=== PATIENT | female | born 1945 | race Caucasian/White ===

== ENCOUNTER → 2017-02-11 | Outpatient (CLI) | payer MEDICARE, MEDICAID ==
[2016-05-23 10:45] VITALS: BP 106/61
[~2017-02-11] MED LIST: ALBU8.5H3 INH; AMLO10TA2 PO; BACL10TA PO; BUDE10.2 IH; CALC1TAB75 PO; CYAN10005 PO; CYCL10TA2 PO; DEXT20CA7 PO; DEXT20TA2 PO; DEXT20TA24 PO; DIPH25CA58 PO; DULO60CA6 PO; ESTR1TAB5 PO; HYDR-2666 PO; HYDR-2672 PO; HYDR40TA PO; LEVO100T5 PO; LURA40TA PO; MIRA50TA PO; MONT10TA9 PO; ONDA4TAB10 PO; ROPI0.5T PO; SUMA100T3 PO; SUMA100T4 PO; TRAM50TA PO; VALS320T2 PO
--- NOTE | 2017-02-11 15:02 | RAD ---
APPROVED REPORT Patient Location : OUT-PATIENT Indications Skin Changes Bilateral saphenofemoral junctions and greater and lesser saphenous veins were imaged. No significant thrombus is evident on limited grayscale images. Although there is reflux noted in the common femora l vein of approximately 4 seconds there is no evidence of reflux in the greater saphenous vein on the right side. No evidence of reflux on the lesser saphenous vein on the right side. The left greater and lesser saphenous veins do not demonstrate any evidence of reflux. The right great saphenous vein measures approximately 5 mm in greatest diameter. The left greater sap henous vein measures approximately 5 mm in diameter. Critical Notification Critical Value: No <Conclusion> No evidence of reflux in the bilateral greater and lesser saphenous veins.
== END | disposition home or self-care (01) ==
LOC: US 12:50
PROVIDERS: ATTEND Internal Medicine Cardiovascular Disease
DX: R60.0 Localized edema (principal)
CPT/HCPCS: 93970

== ENCOUNTER 2017-06-10 09:54 | Emergency (ER) | payer MEDICARE, MEDICAID ==
[~2017-06-10] VITALS: Ht 167.6 cm; Wt 72.6 kg
[~2017-06-10 09:54] MED LIST changes: -ALBU8.5H3 INH; +ALBU8.5H8 INH; +CYCL-331 PO; -CYCL10TA2 PO; -HYDR-2666 PO; -HYDR-2672 PO; +HYDR-2758 PO; +HYDR-2766 PO
[2017-06-10 10:39] LABS: BASO # 0.1 x10^3/uL (0.0-0.2); BASO % 1 % (0-3); EOS # 0.1 x10^3/uL (0.0-0.7); EOS % 2 % (0-3); HEMATOCRIT 41.3 % (36.0-47.0); HEMOGLOBIN 13.2 g/dL (12.0-15.5); LYMPH # 1.5 x10^3/uL (1.0-4.8); LYMPH % 23 % (24-48); MEAN CORPUSCULAR HEMOGLOBIN 26 pg (25-35); MEAN CORPUSCULAR HGB CONC 32 g/dL (31-37); MEAN CORPUSCULAR VOLUME 81 fL (79-100); MONO # 0.6 x10^3/uL (0.0-1.1); MONO % 9 % (0-9); NEUT # 4.3 x10^3uL (1.8-7.7); NEUT % 66 % (31-73); PLATELET COUNT 215 x10^3/uL (140-400); RED BLOOD COUNT 5.13 x10^6/uL (3.50-5.40); RED CELL DISTRIBUTION WIDTH 18.1 % (11.5-14.5); WHITE BLOOD COUNT 6.5 x10^3/uL (4.0-11.0)
[2017-06-10] MEDS ORDERED: LIDO:MAALOX 1:1 20 ML SINGLE DOSE PO ONE (10:45)
[2017-06-10] MEDS ORDERED: IV NORMAL SALINE 1,000ML 1,000 ML IV SCH (10:45)
[2017-06-10] MEDS ORDERED: KETOROLAC 15 MG/ML VIAL. IV ONE (10:45)
[2017-06-10] MEDS ORDERED: ONDANSETRON PF 4 MG/2 ML VIAL. IV ONE (10:45)
[2017-06-10 10:52] LABS: ALBUMIN 4.2 g/dL (3.4-5.0); ALBUMIN/GLOBULIN RATIO 1.1 (1.0-1.7); CALCIUM 9.3 mg/dL (8.5-10.1); CREATININE 0.7 mg/dL (0.6-1.0); GFR 82.3; TOTAL BILIRUBIN 0.8 mg/dL (0.2-1.0); TOTAL PROTEIN 8.2 g/dL (6.4-8.2)
[2017-06-10 12:05] LABS: BACTERIA,URINE 0 /HPF (0-FEW); BILIRUBIN,URINE NEG (NEG); CLARITY,URINE HAZY; COLOR,URINE YELLOW; GLUCOSE,URINE NEG (NEG); HYALINE CASTS, URINE OCC /HPF; NITRITE,URINE NEG (NEG); RBC,URINE RARE /HPF (0-2); SQUAMOUS EPITHELIAL CELL,UR OCC /LPF; UROBILINOGEN,URINE 0.2 mg/dL (0.2 mg/dL)
[2017-06-10] MEDS ORDERED: MORPHINE SULFATE 2 MG/ML DISP.SYRIN. IV ONE ×2 (12:10→14:00)
--- NOTE | 2017-06-10 12:29 | PHYS DOC ---
Past History Past Medical History: Anxiety, Asthma, Depression, Gallstones, Hypertension, Hypothyroid, Other Past Surgical History: Other Smoking: Non-smoker Alcohol Use: Rarely Drug Use: None Adult General Chief Complaint Chief Complaint: FLANK PAIN HPI HPI Patient is a 71 year old F who presents with right upper quadrant and epigastric pain over the past 4 days. She describes a constant dull pain with intermittent sharp pain lasting seconds. She feels that food and drink make her symptoms worse. Movement also makes her pain worse. She has been able to drink while but has not eaten much over the past 4 days. She does have associated nausea but no vomiting. She is having normal urination and stools. She does occasionally describe stool that floats and does have a history of gallbladder disease however she has not had her gallbladder removed Review of Systems Review of Systems Constitutional: Denies fever or chills [] Eyes: Denies change in visual acuity, redness, or eye pain [] HENT: Denies nasal congestion or sore throat [] Respiratory: Denies cough or shortness of breath [] Cardiovascular: No additional information not addressed in HPI [] GI: Negative except history of present illness : Denies dysuria or hematuria [] Musculoskeletal: Denies back pain or joint pain [] Integument: Denies rash or skin lesions [] Neurologic: Denies headache, focal weakness or sensory changes [] Endocrine: Denies polyuria or polydipsia [] Family History Family History Noncontributory Current Medications Current Medications Home medications were reviewed Medications (Trade) Dose Ordered Sig/[facility] Start Time Stop Time Status Last Admin Dose Admin Ketorolac Tromethamine (Toradol) 15 mg 1X ONCE 06/10/17 10:45 06/10/17 10:46 DC 06/10/17 10:39 15 MG Morphine Sulfate (Morphine 2mg Syringe) 2 mg 1X ONCE 06/10/17 12:10 06/10/17 12:11 DC 06/10/17 11:58 2 MG Multi-Ingredient Mouthwash/Gargle (Gi Cocktail) 20 ml 1X ONCE 06/10/17 10:45 06/10/17 10:46 DC 06/10/17 10:36 20 ML Ondansetron HCl (Zofran) 4 mg 1X ONCE 06/10/17 10:45 06/10/17 10:46 DC 06/10/17 10:37 4 MG Sodium Chloride 1,000 ml @ 1,000 mls/hr Q1H 06/10/17 10:45 06/10/17 11:44 DC 06/10/17 10:35 1,000 MLS/HR Allergies Allergies Coded Allergies Type Severity Reaction Last Updated Verified latex Allergy Intermediate 01/25/16 Yes baclofen Allergy Mild Rash 05/22/16 Yes Physical Exam Physical Exam Constitutional: Well developed, well nourished, no acute distress, non-toxic appearance. [] HENT: Normocephalic, atraumatic, oropharynx moist, no oral exudates, nose normal. [] Eyes: PERRLA, EOMI, conjunctiva normal, no discharge. [] Neck: Normal range of motion, no tenderness, supple, no stridor. [] Cardiovascular:Heart rate regular rhythm, Lungs & Thorax: Bilateral breath sounds clear to auscultation [] Abdomen: Bowel sounds normal, soft, no masses, no pulsatile masses. Mild tenderness in the mid epigastric and right upper quadrant with palpation Skin: Warm, dry, no erythema, no rash. [] Back: No tenderness, no CVA tenderness. [] Extremities: No tenderness, no cyanosis, no clubbing, ROM intact, no edema. [] Neurologic: Alert and oriented X 3, normal motor function, normal sensory function, no focal deficits noted. [] Psychologic: Affect normal, judgement normal, mood normal. [] Current Patient Data Vital Signs Vital Signs Date Time Temp Pulse Resp B/P (MAP) Pulse Ox O2 Delivery O2 Flow Rate FiO2 06/10/17 11:58 16 06/10/17 10:35 92 128/83 (98) 97 06/10/17 10:05 98.2 Room Air Lab Results Laboratory Tests Test 06/10/17 10:19 06/10/17 11:32 White Blood Count 6.5 x10^3/uL (4.0-11.0) Red Blood Count 5.13 x10^6/uL (3.50-5.40) Hemoglobin 13.2 g/dL (12.0-15.5) Hematocrit 41.3 % (36.0-47.0) Mean Corpuscular Volume 81 fL (79-100) Mean Corpuscular Hemoglobin 26 pg (25-35) Mean Corpuscular Hemoglobin Concent 32 g/dL (31-37) Red Cell Distribution Width 18.1 % (11.5-14.5) H Platelet Count 215 x10^3/uL (140-400) Neutrophils (%) (Auto) 66 % (31-73) Lymphocytes (%) (Auto) 23 % (24-48) L Monocytes (%) (Auto) 9 % (0-9) Eosinophils (%) (Auto) 2 % (0-3) Basophils (%) (Auto) 1 % (0-3) Neutrophils # (Auto) 4.3 x10^3uL (1.8-7.7) Lymphocytes # (Auto) 1.5 x10^3/uL (1.0-4.8) Monocytes # (Auto) 0.6 x10^3/uL (0.0-1.1) Eosinophils # (Auto) 0.1 x10^3/uL (0.0-0.7) Basophils # (Auto) 0.1 x10^3/uL (0.0-0.2) Sodium Level 138 mmol/L (136-145) Potassium Level 4.0 mmol/L (3.5-5.1) Chloride Level 101 mmol/L (98-107) Carbon Dioxide Level 24 mmol/L (21-32) Anion Gap 13 (6-14) Blood Urea Nitrogen 7 mg/dL (7-20) Creatinine 0.7 mg/dL (0.6-1.0) Estimated GFR (Cockcroft-Gault) 82.3 BUN/Creatinine Ratio 10 (6-20) Glucose Level 109 mg/dL (70-99) H Calcium Level 9.3 mg/dL (8.5-10.1) Total Bilirubin 0.8 mg/dL (0.2-1.0) Aspartate Amino Transferase (AST) 23 U/L (15-37) Alanine Aminotransferase (ALT) 19 U/L (14-59) Alkaline Phosphatase 83 U/L (46-116) Total Protein 8.2 g/dL (6.4-8.2) Albumin 4.2 g/dL (3.4-5.0) Albumin/Globulin Ratio 1.1 (1.0-1.7) Lipase 79 U/L (73-393) Urine Collection Type Unknown Urine Color Yellow Urine Clarity Hazy Urine pH 7.5 Urine Specific [place] 1.015 Urine Protein Neg (NEG-TRACE) Urine Glucose (UA) Neg mg/dL (NEG) Urine Ketones (Stick) Neg mg/dL (NEG) Urine Blood Trace (NEG) Urine Nitrite Neg (NEG) Urine Bilirubin Neg (NEG) Urine Urobilinogen Dipstick 0.2 mg/dL (0.2 mg/dL) Urine Leukocyte Esterase Small (NEG) Urine RBC Rare /HPF (0-2) Urine WBC 1-4 /HPF (0-4) Urine Squamous Epithelial Cells Occ /LPF Urine Transitional Epithelial Cells Few /LPF Urine Bacteria 0 /HPF (0-FEW) Urine Hyaline Casts Occ /HPF Urine Mucus Slight /LPF Radiology/Procedures Radiology/Procedures US Impressions: Mild common bile duct Course & Med Decision Making Course & Med Decision Making Pertinent Labs and Imaging studies reviewed. (See chart for details) Surgery was contacted by phone. Dr. Sherman recommended that China be seen in his clinic today to schedule surgery as long as her pain was controlled. Dragon Disclaimer Dragon Disclaimer This chart was dictated in whole or in part using Voice Recognition software in a busy, high-work load, and often noisy Emergency Department environment. It may contain unintended and wholly unrecognized errors or omissions. Departure Departure: Impression: Primary Impression: Gallbladder calculus Disposition: HOME, SELF-CARE Condition: STABLE Referrals: KASSI SMALLS (PCP) Patient Instructions: Abdominal Pain Additional Instructions: China was seen in the ED for abdominal pain. No emergency medical condition was found during the history and physical exam. She did have normal labs. Surgery was contacted by phone and she was advised to follow up in the surgery clinic today for further management. Problem Qualifiers Primary Impression: Gallbladder calculus Cholecystitis presence: without cholecystitis Biliary obstruction: without biliary obstruction Qualified Codes: K80.20 - Calculus of gallbladder without cholecystitis without obstruction BERHANE MCMILLAN MD Jun 10, 2017 12:29
--- NOTE | 2017-06-10 13:07 | RAD ---
EXAM: Right upper quadrant ultrasound. HISTORY: Right upper quadrant pain and nausea. COMPARISON: None. FINDINGS: Sonographic evaluation of the right upper quadrant was performed. The liver appears normal in parenchymal echotexture. There are no focal lesions. A gallstone is noted. There is no gallbladder wall thickening or pericholecystic fluid. There is no sonographic Pyle sign. The common duct measures 7 mm. No cause for distal obstruction is seen. The visualized portions of the head and body of the pancreas reveal no abnormality. The right kidney measures 9.9 cm. Cortical thickness and echogenicity are preserved. There is no hydronephrosis. The visualized portions of the abdominal aorta and inferior vena cava are grossly patent and normal in caliber. IMPRESSION: 1. Cholelithiasis without sonographic evidence of acute cholecystitis. 2. The common duct is at the upper limits of normal caliber at 7 mm. No cause for distal obstruction is seen. Correlate for cholestasis to assess significance.
[2017-06-10 14:38] VITALS: BP 164/77
== END 2017-06-10 14:49 | disposition home or self-care (01) ==
LOC: ER 09:54
DX: K80.20 Calculus of gallbladder without cholecystitis without obstruction (principal); J45.909 Unspecified asthma, uncomplicated; I10 Essential (primary) hypertension; F41.9 Anxiety disorder, unspecified; E03.9 Hypothyroidism, unspecified; Z88.8 Allergy status to other drugs, medicaments and biological substances; Z91.040 Latex allergy status
CPT/HCPCS: 36415; 76705; 80053; 81001; 83690; 85027; 87086; 96361; 96374; 96375; 96376; 99285; J1885; J2270; J2405; J7030

== ENCOUNTER 2017-06-15 19:11 | Emergency (ER) | payer MEDICARE, MEDICAID ==
[~2017-06-15] VITALS: Ht 167.6 cm; Wt 67.7 kg
[2017-06-15 19:11] VITALS: BP 140/89
[2017-06-15] MEDS ORDERED: IV NORMAL SALINE 1,000ML 1,000 ML ONE (19:41)
[2017-06-15] MEDS ORDERED: ONDANSETRON PF 4 MG/2 ML VIAL. ONE (19:41)
[2017-06-15] MEDS ORDERED: IV NORMAL SALINE 1,000ML 1,000 ML IV ONE (19:45)
[2017-06-15] MEDS ORDERED: ONDANSETRON PF 4 MG/2 ML VIAL. IV ONE (19:45)
[2017-06-15] MEDS ORDERED: KETOROLAC 30 MG/ML VIAL. IV ONE (20:00)
[2017-06-15 20:16] LABS: BASO # 0.1 x10^3/uL (0.0-0.2); BASO % 1 % (0-3); EOS # 0.1 x10^3/uL (0.0-0.7); EOS % 2 % (0-3); HEMATOCRIT 35.5 % (36.0-47.0); HEMOGLOBIN 11.7 g/dL (12.0-15.5); LYMPH # 2.2 x10^3/uL (1.0-4.8); LYMPH % 30 % (24-48); MEAN CORPUSCULAR HEMOGLOBIN 26 pg (25-35); MEAN CORPUSCULAR HGB CONC 33 g/dL (31-37); MEAN CORPUSCULAR VOLUME 80 fL (79-100); MONO # 0.8 x10^3/uL (0.0-1.1); MONO % 11 % (0-9); NEUT % 56 % (31-73); PLATELET COUNT 187 x10^3/uL (140-400); RED BLOOD COUNT 4.46 x10^6/uL (3.50-5.40); RED CELL DISTRIBUTION WIDTH 17.4 % (11.5-14.5); WHITE BLOOD COUNT 7.2 x10^3/uL (4.0-11.0)
[2017-06-15 20:32] LABS: ALBUMIN 3.6 g/dL (3.4-5.0); ALBUMIN/GLOBULIN RATIO 1.2 (1.0-1.7); CALCIUM 8.7 mg/dL (8.5-10.1); CREATININE 0.5 mg/dL (0.6-1.0); GFR 121.3; POTASSIUM 3.3 mmol/L (3.5-5.1); TOTAL BILIRUBIN 0.5 mg/dL (0.2-1.0); TOTAL PROTEIN 6.7 g/dL (6.4-8.2)
--- NOTE | 2017-06-15 21:49 | RAD ---
EXAM: CT ABDOMEN/PELVIS WITHOUT CONTRAST. HISTORY: Recent cholecystectomy, now with nausea/vomiting and abdominal pain. TECHNIQUE: Computed tomography of the abdomen and pelvis was performed without intravenous contrast. COMPARISON: January 24, 2016. FINDINGS: Lung windows through the visualized portions of the bases reveal mild atelectasis or scarring. There is a large hiatal hernia. Bone windows reveal no suspicious lesions. There are diffuse moderate to severe degenerative changes of the lumbar spine. There is grade 1 anterolisthesis at L4-5 from a unilateral left L4 pars interarticularis defects. The gallbladder is surgically absent. There is a small hypoattenuating region in the cholecystectomy bed measuring 1.8 x 1.0 cm. This may represent packing material or small fluid collection. There is no drainable collection. There is some stranding within the subcutaneous fat of the upper anterior abdominal wall without an associated collection. There are calcified granulomas in the liver and spleen. The common duct is at the upper limits of normal caliber at 7 mm. There is no distal obstructing lesion. The pancreas, adrenal glands and kidneys are unremarkable. There are changes of pelvic floor relaxation with a small cystocele. Stool throughout the right colon suggests constipation. The appendix is not inflamed. There is no obstruction or evidence of ileus. IMPRESSION: 1. A 1.8 cm hypoattenuating lesion in the cholecystectomy bed may represent packing material or a small fluid collection. There is no drainable collection or clear complication. 2. Stranding within the anterior abdominal wall may be postoperative. Correlate to exclude cellulitis. 3. Findings suggesting constipation. 4. Large hiatal hernia. 5. Pelvic floor relaxation with a small cystocele. *One or more of the following individualized dose reduction techniques were utilized for this examination: 1. Automated exposure control. 2. Adjustment of the mA and/or kV according to patient size. 3. Use of iterative reconstruction technique. Electronically signed by: Jeanette Recinos MD (06/15/2017 9:45 PM) [facility]
[2017-06-15] MEDS ORDERED: MAGNESIUM CITRATE 296 ML SOLUTION. PO ONE (22:15)
[2017-06-15] MEDS ORDERED: fentaNYL PF 100 MCG/2 ML VIAL ONE (22:37)
[2017-06-15] MEDS ORDERED: fentaNYL PF 250 MCG/5 ML VIAL IV ONE (22:45)
[2017-06-15] MEDS ORDERED: fentaNYL PF 100 MCG/2 ML VIAL IV ONE (23:00)
--- NOTE | 2017-06-15 23:33 | ED.ADGEN ---
Past History Past Medical History: Anxiety, Asthma, Depression, Gallstones, Hypertension, Hypothyroid, Other Past Surgical History: Cholecystectomy, Other Smoking: Non-smoker Alcohol Use: Rarely Drug Use: None Adult General Chief Complaint Chief Complaint post op constipation HPI HPI pt had GB out on wednesday. she has had n/v and no BM since before surgery. she has had continuous abdominal pain since Review of Systems Review of Systems Constitutional: Denies fever or chills [] Eyes: Denies change in visual acuity, redness, or eye pain [] HENT: Denies nasal congestion or sore throat [] Respiratory: Denies cough or shortness of breath [] Cardiovascular: No additional information not addressed in HPI [] GI: +abd pain, n/v. no bloody stools or diarrhea [] : Denies dysuria or hematuria [] Musculoskeletal: Denies back pain or joint pain [] Integument: Denies rash or skin lesions [] Neurologic: Denies headache, focal weakness or sensory changes [] Endocrine: Denies polyuria or polydipsia [] Current Medications Current Medications Current Medications Medications (Trade) Dose Ordered Sig/[facility] Start Time Stop Time Status Last Admin Dose Admin Fentanyl Citrate (Fentanyl 2ml Vial) 50 mcg 1X ONCE 06/15/17 23:00 06/15/17 23:01 DC 06/15/17 22:40 50 MCG Fentanyl Citrate (Fentanyl 5ml Vial) 50 mcg 1X ONCE 06/15/17 22:45 06/15/17 22:45 DC Ketorolac Tromethamine (Toradol) 30 mg 1X ONCE 06/15/17 20:00 06/15/17 20:01 DC 06/15/17 20:00 30 MG Magnesium Citrate (Citroma) 296 ml 1X ONCE 06/15/17 22:15 06/15/17 22:16 DC 06/15/17 22:15 296 ML Ondansetron HCl (Zofran Odt) 4 mg STK-MED ONCE 06/15/17 23:43 06/15/17 23:44 DC Ondansetron HCl (Zofran) 4 mg STK-MED ONCE 06/15/17 19:41 06/15/17 19:42 DC Sodium Chloride 1,000 ml @ As Directed STK-MED ONCE 06/15/17 19:41 06/15/17 19:42 DC Allergies Allergies Allergies Coded Allergies Type Severity Reaction Last Updated Verified latex Allergy Intermediate 01/25/16 Yes baclofen Allergy Mild Rash 05/22/16 Yes Physical Exam Physical Exam Constitutional: Well developed, well nourished, no acute distress, non-toxic appearance. [] HENT: Normocephalic, atraumatic, bilateral external ears normal, oropharynx moist, no oral exudates, nose normal. [] Eyes: PERRLA, EOMI, conjunctiva normal, no discharge. [] Neck: Normal range of motion, no tenderness, supple, no stridor. [] Cardiovascular:nml HR, systolic murmur heard best in RICS Lungs & Thorax: Bilateral breath sounds clear to auscultation [] Abdomen:decreased BS, tender over incisions and RUQ. incisions are c/d/i, + ecchymosis around incisions. no erythema. no distention, rebound, or guarding Skin: Warm, dry, no erythema, no rash. [] Back: No tenderness, no CVA tenderness. [] Extremities: No tenderness, no cyanosis, no clubbing, ROM intact, no edema. [] Neurologic: Alert and oriented X 3, normal motor function, normal sensory function, no focal deficits noted. [] Psychologic: Affect normal, judgement normal, mood normal. [] Current Patient Data Vital Signs Vital Signs Date Time Temp Pulse Resp B/P (MAP) Pulse Ox O2 Delivery O2 Flow Rate FiO2 06/15/17 22:40 20 97 Room Air 06/15/17 19:11 98.2 91 Lab Results Laboratory Tests Test 06/15/17 19:55 White Blood Count 7.2 x10^3/uL (4.0-11.0) Red Blood Count 4.46 x10^6/uL (3.50-5.40) Hemoglobin 11.7 g/dL (12.0-15.5) L Hematocrit 35.5 % (36.0-47.0) L Mean Corpuscular Volume 80 fL (79-100) Mean Corpuscular Hemoglobin 26 pg (25-35) Mean Corpuscular Hemoglobin Concent 33 g/dL (31-37) Red Cell Distribution Width 17.4 % (11.5-14.5) H Platelet Count 187 x10^3/uL (140-400) Neutrophils (%) (Auto) 56 % (31-73) Lymphocytes (%) (Auto) 30 % (24-48) Monocytes (%) (Auto) 11 % (0-9) H Eosinophils (%) (Auto) 2 % (0-3) Basophils (%) (Auto) 1 % (0-3) Neutrophils # (Auto) 4.0 x10^3uL (1.8-7.7) Lymphocytes # (Auto) 2.2 x10^3/uL (1.0-4.8) Monocytes # (Auto) 0.8 x10^3/uL (0.0-1.1) Eosinophils # (Auto) 0.1 x10^3/uL (0.0-0.7) Basophils # (Auto) 0.1 x10^3/uL (0.0-0.2) Sodium Level 139 mmol/L (136-145) Potassium Level 3.3 mmol/L (3.5-5.1) L Chloride Level 99 mmol/L (98-107) Carbon Dioxide Level 30 mmol/L (21-32) Anion Gap 10 (6-14) Blood Urea Nitrogen 6 mg/dL (7-20) L Creatinine 0.5 mg/dL (0.6-1.0) L Estimated GFR (Cockcroft-Gault) 121.3 BUN/Creatinine Ratio 12 (6-20) Glucose Level 113 mg/dL (70-99) H Calcium Level 8.7 mg/dL (8.5-10.1) Total Bilirubin 0.5 mg/dL (0.2-1.0) Aspartate Amino Transferase (AST) 23 U/L (15-37) Alanine Aminotransferase (ALT) 23 U/L (14-59) Alkaline Phosphatase 64 U/L (46-116) Total Protein 6.7 g/dL (6.4-8.2) Albumin 3.6 g/dL (3.4-5.0) Albumin/Globulin Ratio 1.2 (1.0-1.7) EKG EKG [] Radiology/Procedures Radiology/Procedures [] Course & Med Decision Making Course & Med Decision Making pt has been moving with ease. she has been sitting up in bed with little distress. she drank all of mag citrate without vomiting or dry heaves. she states nausea is better. CT did not show obstruction, mostly post-op changes,. WBC normal. IVF given. pt states she feels better. she ambulated without difficulty to bathroom. she states she feels stable enough to go home. she knows to return immediately if vomiting returns or pain worsens. she understands that hydrocodone is making symptoms worse and to try and lessen it [] Final Impression Final Impression postop nausea and constipation[] Problems: Dragon Disclaimer Dragon Disclaimer This electronic medical record was generated, in whole or in part, using a voice recognition dictation system. Departure Time of Disposition: 23:32 Disposition: 01 HOME, SELF-CARE Condition: IMPROVED Patient Instructions: Nausea and Vomiting Additional Instructions: take colace AND senna chelsea daily until bowel movement. keep foods soft and liquids until bowel movement. zofran for nausea. try to decrease hydrocodone use. Call your surgeon in 24 hours if no improvement. return here if symptoms worsen. MARY JENSEN MD Jun 15, 2017 23:33
[2017-06-15] MEDS ORDERED: ONDANSETRON ODT 4 MG TAB.RAPDIS ONE (23:43)
[2017-06-16] MEDS ORDERED: ONDANSETRON ODT 4 MG TAB.RAPDIS PO ONE
== END 2017-06-16 00:05 | disposition home or self-care (01) ==
LOC: ER 19:11
DX: K95.89 Other complications of other bariatric procedure (principal); K59.00 Constipation, unspecified; R11.2 Nausea with vomiting, unspecified; E03.9 Hypothyroidism, unspecified; I10 Essential (primary) hypertension; J45.909 Unspecified asthma, uncomplicated; Z90.49 Acquired absence of other specified parts of digestive tract; Z98.84 Bariatric surgery status; Z88.8 Allergy status to other drugs, medicaments and biological substances; Z91.040 Latex allergy status
CPT/HCPCS: 36415; 74176; 80053; 85027; 96361; 96374; 96375; 99285; J1885; J3010; Q0162; J2405; J7030

== ENCOUNTER 2017-06-17 03:25 | Emergency (ER) | payer MEDICARE, MEDICAID ==
[~2017-06-17] VITALS: Ht 167.6 cm; Wt 67.7 kg
[2017-06-17 03:25] VITALS: BP 162/74
[2017-06-17] MEDS ORDERED: ONDANSETRON PF 4 MG/2 ML VIAL. ONE (03:42)
[2017-06-17] MEDS ORDERED: ONDANSETRON PF 4 MG/2 ML VIAL. IV ONE (04:00)
[2017-06-17] MEDS ORDERED: IV NORMAL SALINE 1,000ML 1,000 ML IV ONE (04:00)
[2017-06-17] MEDS ORDERED: fentaNYL PF 100 MCG/2 ML VIAL IV ONE (04:00)
--- NOTE | 2017-06-17 04:01 | ED.ADGEN ---
Past History Past Medical History: Anxiety, Asthma, Depression, Gallstones, Hypertension, Hypothyroid, Other Past Surgical History: Cholecystectomy, Other Smoking: Non-smoker Alcohol Use: Rarely Drug Use: None Adult General Chief Complaint Chief Complaint Postoperative abdominal/back pain HPI HPI Patient is a 71-year-old female who is 6 days postoperative laparoscopic cholecystectomy per Dr. [facility] who presents for repeat evaluation for right lower quadrant/right lower flank pain. Patient was evaluated in this emergency Department less than 12 hours ago for the same complaint. At time, lab work and imaging studies were performed. CT the abdomen and pelvis showed possible small fluid collection or packing below the area where the gallbladder was previously located along with large volume of stool. Patient was discharged home and instructed to drink magnesium citrate and has since done so without bowel movement. Patient currently denies any abdominal pain, reports right paravertebral lumbar back pain worse with palpation and trunk rotation and movement. Patient rise by EMS.. Review of Systems Review of Systems Review symptoms as per history of present illness. All other review symptoms are negative. Current Medications Current Medications Current Medications Medications (Trade) Dose Ordered Sig/[facility] Start Time Stop Time Status Last Admin Dose Admin Fentanyl Citrate (Fentanyl 2ml Vial) 75 mcg 1X ONCE 06/17/17 04:00 06/17/17 04:06 DC 06/17/17 04:00 75 MCG Info (Do NOT chart on this entry -- for MONITORING) 1 each PRN DAILY PRN 06/17/17 04:15 06/19/17 04:14 Iohexol (Omnipaque 300 Mg/ml) 75 ml 1X ONCE 06/17/17 04:15 06/17/17 04:16 DC 06/17/17 04:47 75 ML Morphine Sulfate (Morphine 4mg Syringe) 4 mg 1X ONCE 06/17/17 05:15 06/17/17 05:16 DC 06/17/17 05:15 4 MG Ondansetron HCl (Starter Pack - Zofran Odt) 1 startpack 1X ONCE 06/17/17 05:45 06/17/17 05:46 DC 06/17/17 05:45 1 STARTPACK Ondansetron HCl (Zofran) 4 mg STK-MED ONCE 06/17/17 03:42 06/17/17 03:43 DC Promethazine HCl (Phenergan) 25 mg STK-MED ONCE 06/17/17 05:10 06/17/17 05:11 DC Promethazine HCl 12.5 mg/Sodium Chloride 50.5 ml @ 101 mls/hr PRN Q6HRS PRN 06/17/17 05:15 06/17/17 05:18 101 MLS/HR Sodium Chloride 50 ml @ As Directed STK-MED ONCE 06/17/17 05:10 06/17/17 05:11 DC Allergies Allergies Allergies Coded Allergies Type Severity Reaction Last Updated Verified latex Allergy Intermediate 01/25/16 Yes baclofen Allergy Mild Rash 05/22/16 Yes Physical Exam Physical Exam Constitutional: Well developed, well nourished, no acute distress, non-toxic appearance. HENT: Normocephalic, atraumatic, bilateral external ears normal, oropharynx moist, no oral exudates, nose normal. Eyes: PERRLA, EOMI, conjunctiva normal. Neck: Normal range of motion, no tenderness. Cardiovascular:Heart rate regular rhythm, no murmur. Lungs & Thorax: Bilateral breath sounds clear to auscultation. Abdomen: Bowel sounds normal, soft, no tenderness, no masses. Skin: Warm, dry, no erythema. Back: No tenderness, right lower paravertebral pain/tenderness. Extremities: No tenderness. Neurologic: Alert and oriented X 3, normal motor function, normal sensory function, no focal deficits noted. Psychologic: Affect normal, judgement normal, mood normal. Current Patient Data Vital Signs Vital Signs Date Time Temp Pulse Resp B/P (MAP) Pulse Ox O2 Delivery O2 Flow Rate FiO2 06/17/17 05:15 20 98 Room Air 06/17/17 03:25 97.9 97 Lab Results Laboratory Tests Test 06/17/17 03:45 06/17/17 04:50 White Blood Count 8.0 x10^3/uL (4.0-11.0) Red Blood Count 4.46 x10^6/uL (3.50-5.40) Hemoglobin 11.7 g/dL (12.0-15.5) L Hematocrit 35.8 % (36.0-47.0) L Mean Corpuscular Volume 80 fL (79-100) Mean Corpuscular Hemoglobin 26 pg (25-35) Mean Corpuscular Hemoglobin Concent 33 g/dL (31-37) Red Cell Distribution Width 17.4 % (11.5-14.5) H Platelet Count 182 x10^3/uL (140-400) Neutrophils (%) (Auto) 58 % (31-73) Lymphocytes (%) (Auto) 26 % (24-48) Monocytes (%) (Auto) 12 % (0-9) H Eosinophils (%) (Auto) 3 % (0-3) Basophils (%) (Auto) 1 % (0-3) Neutrophils # (Auto) 4.6 x10^3uL (1.8-7.7) Lymphocytes # (Auto) 2.1 x10^3/uL (1.0-4.8) Monocytes # (Auto) 1.0 x10^3/uL (0.0-1.1) Eosinophils # (Auto) 0.3 x10^3/uL (0.0-0.7) Basophils # (Auto) 0.1 x10^3/uL (0.0-0.2) Sodium Level 134 mmol/L (136-145) L Potassium Level 3.5 mmol/L (3.5-5.1) Chloride Level 95 mmol/L (98-107) L Carbon Dioxide Level 32 mmol/L (21-32) Anion Gap 7 (6-14) Blood Urea Nitrogen 12 mg/dL (7-20) Creatinine 0.7 mg/dL (0.6-1.0) Estimated GFR (Cockcroft-Gault) 82.3 BUN/Creatinine Ratio 17 (6-20) Glucose Level 107 mg/dL (70-99) H Calcium Level 9.1 mg/dL (8.5-10.1) Total Bilirubin 0.4 mg/dL (0.2-1.0) Aspartate Amino Transferase (AST) 17 U/L (15-37) Alanine Aminotransferase (ALT) 19 U/L (14-59) Alkaline Phosphatase 64 U/L (46-116) Total Protein 7.2 g/dL (6.4-8.2) Albumin 3.8 g/dL (3.4-5.0) Albumin/Globulin Ratio 1.1 (1.0-1.7) Lipase 67 U/L (73-393) L Urine Collection Type Unknown Urine Color Yellow Urine Clarity Clear Urine pH 7.5 Urine Specific [place] 1.010 Urine Protein Neg (NEG-TRACE) Urine Glucose (UA) Neg mg/dL (NEG) Urine Ketones (Stick) Neg mg/dL (NEG) Urine Blood Neg (NEG) Urine Nitrite Neg (NEG) Urine Bilirubin Neg (NEG) Urine Urobilinogen Dipstick 0.2 mg/dL (0.2 mg/dL) Urine Leukocyte Esterase Small (NEG) Urine RBC 0 /HPF (0-2) Urine WBC 1-4 /HPF (0-4) Urine Squamous Epithelial Cells Occ /LPF Urine Bacteria 0 /HPF (0-FEW) EKG EKG [] Radiology/Procedures Radiology/Procedures [CT abdomen pelvis dated . 1.68 cm hypoattenuating lesion may represent a small fluid collection without drainable collection or clear complication. Abdominal wall stranding the anterior abdominal wall may be postoperative versus cellulitis. Findings suggest constipation per radiology report.] Course & Med Decision Making Course & Med Decision Making Pertinent Labs and Imaging studies reviewed. (See chart for details) [Patient's own is soft with minimal tenderness on my evaluation. Patient does have right lower paravertebral pain, tenderness reproduces with palpation and movement. Lab work reviewed. Recent CT reviewed. Also reviewed with Dr. Sherman will see the patient in the clinic this afternoon. Final Impression Final Impression [1. Back pain] Problems: Dragon Disclaimer Dragon Disclaimer This electronic medical record was generated, in whole or in part, using a voice recognition dictation system. SAVANNAH DOLAN DO Jun 17, 2017 04:01
[2017-06-17 04:03] LABS: BASO # 0.1 x10^3/uL (0.0-0.2); BASO % 1 % (0-3); EOS # 0.3 x10^3/uL (0.0-0.7); EOS % 3 % (0-3); HEMATOCRIT 35.8 % (36.0-47.0); HEMOGLOBIN 11.7 g/dL (12.0-15.5); LYMPH # 2.1 x10^3/uL (1.0-4.8); LYMPH % 26 % (24-48); MEAN CORPUSCULAR HEMOGLOBIN 26 pg (25-35); MEAN CORPUSCULAR HGB CONC 33 g/dL (31-37); MEAN CORPUSCULAR VOLUME 80 fL (79-100); MONO % 12 % (0-9); NEUT # 4.6 x10^3uL (1.8-7.7); NEUT % 58 % (31-73); PLATELET COUNT 182 x10^3/uL (140-400); RED BLOOD COUNT 4.46 x10^6/uL (3.50-5.40); RED CELL DISTRIBUTION WIDTH 17.4 % (11.5-14.5)
[2017-06-17 04:14] LABS: ALBUMIN 3.8 g/dL (3.4-5.0); ALBUMIN/GLOBULIN RATIO 1.1 (1.0-1.7); CALCIUM 9.1 mg/dL (8.5-10.1); CREATININE 0.7 mg/dL (0.6-1.0); GFR 82.3; POTASSIUM 3.5 mmol/L (3.5-5.1); TOTAL BILIRUBIN 0.4 mg/dL (0.2-1.0); TOTAL PROTEIN 7.2 g/dL (6.4-8.2)
[2017-06-17] MEDS ORDERED: CONTRAST GIVEN MC PRN (04:15)
[2017-06-17] MEDS ORDERED: IOHEXOL 300 MG/ML 75 ML VIAL. IV ONE (04:15)
[2017-06-17 05:09] LABS: BACTERIA,URINE 0 /HPF (0-FEW); BILIRUBIN,URINE NEG (NEG); CLARITY,URINE CLEAR; COLOR,URINE YELLOW; GLUCOSE,URINE NEG (NEG); NITRITE,URINE NEG (NEG); RBC,URINE 0 /HPF (0-2); SQUAMOUS EPITHELIAL CELL,UR OCC /LPF; UROBILINOGEN,URINE 0.2 mg/dL (0.2 mg/dL)
[2017-06-17] MEDS ORDERED: IV NORMAL SALINE 50ML 50 ML ONE (05:10)
[2017-06-17] MEDS ORDERED: PROMETHAZINE 25 MG/ML VIAL IV ONE (05:10)
[2017-06-17] MEDS ORDERED: PROMETHAZINE 12.5 MG in IV NORMAL SALINE 50ML 50 ML IV PRN (05:15)
[2017-06-17] MEDS ORDERED: MORPHINE SULFATE 4 MG/ML DISP.SYRIN. IV ONE (05:15)
[2017-06-17] MEDS ORDERED: ONDANSETRON 4MG ODT 4TABLET STARTPACK. PO ONE (05:45)
--- NOTE | 2017-06-17 05:52 | RAD ---
CT abdomen and pelvis with contrast: Reason for examination: Postop abdominal pain. Status post cholecystectomy. Comparison is made to previous study dated 06/15/2017. Helical images were obtained through the abdomen and pelvis with intravenous administration of 75 cc Omni 300. Reconstruction was performed in sagittal and coronal planes. Exposure: One or more of the following individualized dose reduction techniques were utilized for this examination: 1. Automated exposure control 2. Adjustment of the mA and/or kV according to patient size 3. Use of iterative reconstruction technique. There is some linear atelectasis in the left lingula. The heart size is normal with no pericardial effusion seen. Large hiatal hernia is present. No abnormalities seen at the liver. The spleen shows splenic granuloma but no other abnormalities. Adrenal glands and pancreas show no abnormalities. Postop changes are seen from cholecystectomy with a small amount of fluid present in the gallbladder fossa this however is unchanged when compared to previous exam. The kidneys show no renal masses, renal calculi, hydronephrosis or evidence of obstructive uropathy. No abnormality seen at the appendix. The intestinal tract shows no abnormally dilated loops of bowel or bowel obstruction. There is a moderate amount of fecal material in the colon. No abnormality seen at the bladder or uterus. No adnexal masses are evident. No other abnormal fluid collections are identified. There continues to be edema in the right anterior abdominal wall with no abnormal fluid collection seen. IMPRESSION: Linear atelectasis at the left lung base. Large hiatal hernia. Continued presence of a small amount of fluid in the gallbladder fossa which is unchanged. Continued presence of edema in the anterior abdominal wall which is unchanged. Electronically signed by: Nani Garrett MD (06/17/2017 5:49 AM) [facility]
== END 2017-06-17 06:05 | disposition home or self-care (01) ==
LOC: ER 03:25
DX: M54.9 Dorsalgia, unspecified (principal); G89.18 Other acute postprocedural pain; E03.9 Hypothyroidism, unspecified; I10 Essential (primary) hypertension; J45.909 Unspecified asthma, uncomplicated; Z90.49 Acquired absence of other specified parts of digestive tract; Z88.8 Allergy status to other drugs, medicaments and biological substances; Z91.040 Latex allergy status
CPT/HCPCS: 36415; 74177; 80053; 81001; 83690; 85027; 87086; 96361; 96365; 96375; 99285; J2270; J2405; J2550; J3010; Q0162; Q9967; J7030

== ENCOUNTER 2017-07-02 20:27 | Emergency (ER) | payer MEDICARE, MEDICAID ==
[~2017-07-02] VITALS: Ht 167.6 cm; Wt 67.6 kg
[2017-07-02] MEDS: PIPERACILLIN/TAZOBACTAM 4.5 GM in IV NORMAL SALINE 50ML 50 ML IV ONE (00:20)
--- NOTE | 2017-07-02 20:32 | PHYS DOC ---
Past History Past Medical History: Anxiety, Asthma, Depression, Gallstones, Hypertension, Hypothyroid, Other Past Surgical History: Cholecystectomy, Other Smoking: Non-smoker Alcohol Use: Rarely Drug Use: None Adult General Chief Complaint Chief Complaint: CHEST PAIN [facility] This patient is very pleasant 71-year-old female with a 3 week postoperative history of abdominal pain, nausea, vomiting. She recently had a cholecystectomy for symptomatically cholelithiasis 3 weeks ago. Somehow during the first week of her symptoms she developed increasing abdominal pain was noted to have a biliary tree leakage problem. She had a drain placed by the surgeon who did her work doctor Lane. Originally they placed a stent inside the postoperative wound cavity but the patient was too constipated to allow the procedure to be complete. Since that time patient has had a percutaneous biliary tract drain placed in the wound earlier last week when she was hospitalized. The drain itself was capped. Within the last for 5 days it was now placed to suction. Patient has had home health to her home to check the wound and drainage placement daily. Tonight she had increasing pain and noted that she may have dislodged the J PEG tube from its original site. Since that time she's had increasing nausea, chills, vomiting with increasing pain with abdominal wall and chest wall movement. She also says that she's had some palpitations and irregular heartbeat. She denies any chest pain, or shortness of breath. Her pain is mainly around the operative site on the right upper quadrant of the abdomen. Patient denies any UTI symptoms, trauma, or other symptoms. It is moderate at this time patient is very anxious. History was also provided by the daughter at bedside. Review of Systems Review of Systems Constitutional: He has Eyes: Denies change in visual acuity, redness, or eye pain [] HENT: Denies nasal congestion or sore throat [] Respiratory: Denies cough or shortness of breath [] Cardiovascular: No additional information not addressed in HPI [] GI: As complained of continuous abdominal pain with nausea and vomiting but no diarrhea she has had a history constipation. : Denies dysuria or hematuria [] Musculoskeletal: Denies back pain or joint pain [] Integument: Denies rash or skin lesions [] Neurologic: Denies headache, focal weakness or sensory changes [] Endocrine: Denies polyuria or polydipsia [] Allergies Allergies Allergies Coded Allergies Type Severity Reaction Last Updated Verified latex Allergy Intermediate 3/16 Yes baclofen Allergy Mild Rash 05/22/16 Yes Physical Exam Physical Exam Patient's vital signs recorded on the chart and reviewed by me and showed a heart rate of 99 blood pressure 152/94 saturations are 97% on room air. Constitutional: Well developed, well nourished, no acute distress, non-toxic appearance. [] HENT: Normocephalic, atraumatic, bilateral external ears normal, oropharynx moist, no oral exudates, nose normal. [] Eyes: PERRLA, EOMI, conjunctiva normal, no discharge. [] Neck: Normal range of motion, no tenderness, supple, no stridor. [] Cardiovascular:Heart rate regular rhythm, no murmur [] Lungs & Thorax: Bilateral breath sounds clear to auscultation [] Abdomen: Patient's AG drain is still somewhat in place it is no longer tethered to the abdominal wall and seems to be backed out by about 4 cm so. Patient's wound site is clean not dry and some bilious fluid from the wound itself. He is markedly tender on the wound itself. Skin: Warm, dry, no erythema, no rash. [] Back: No tenderness, no CVA tenderness. [] Extremities: No tenderness, no cyanosis, no clubbing, ROM intact, no edema. [] Neurologic: Alert and oriented X 3, normal motor function, normal sensory function, no focal deficits noted. She is very hard of hearing [] Psychologic: Affect normal, judgement normal, mood normal. [] Current Patient Data Vital Signs Vital Signs Date Time Temp Pulse Resp B/P (MAP) Pulse Ox O2 Delivery O2 Flow Rate FiO2 07/02/17 20:35 97.6 100 28 97 Room Air 07/02/17 20:44 152/94 (113) Vital Signs Date Time Temp Pulse Resp B/P (MAP) Pulse Ox O2 Delivery O2 Flow Rate FiO2 07/02/17 20:44 97.6 108 22 152/94 (113) 97 Room Air Lab Results Laboratory Tests Test 07/02/17 20:53 White Blood Count 9.5 x10^3/uL (4.0-11.0) Red Blood Count 4.78 x10^6/uL (3.50-5.40) Hemoglobin 12.7 g/dL (12.0-15.5) Hematocrit 38.5 % (36.0-47.0) Mean Corpuscular Volume 81 fL (79-100) Mean Corpuscular Hemoglobin 27 pg (25-35) Mean Corpuscular Hemoglobin Concent 33 g/dL (31-37) Red Cell Distribution Width 17.4 % (11.5-14.5) H Platelet Count 334 x10^3/uL (140-400) Neutrophils (%) (Auto) 71 % (31-73) Lymphocytes (%) (Auto) 16 % (24-48) L Monocytes (%) (Auto) 10 % (0-9) H Eosinophils (%) (Auto) 2 % (0-3) Basophils (%) (Auto) 1 % (0-3) Neutrophils # (Auto) 6.8 x10^3uL (1.8-7.7) Lymphocytes # (Auto) 1.5 x10^3/uL (1.0-4.8) Monocytes # (Auto) 1.0 x10^3/uL (0.0-1.1) Eosinophils # (Auto) 0.2 x10^3/uL (0.0-0.7) Basophils # (Auto) 0.1 x10^3/uL (0.0-0.2) Sodium Level 132 mmol/L (136-145) L Potassium Level 4.2 mmol/L (3.5-5.1) Chloride Level 98 mmol/L (98-107) Carbon Dioxide Level 27 mmol/L (21-32) Anion Gap 7 (6-14) Blood Urea Nitrogen 9 mg/dL (7-20) Creatinine 0.8 mg/dL (0.6-1.0) Estimated GFR (Cockcroft-Gault) 70.5 Glucose Level 112 mg/dL (70-99) H Lactic Acid Level 1.3 mmol/L (0.4-2.0) Calcium Level 9.3 mg/dL (8.5-10.1) Magnesium Level 1.6 mg/dL (1.8-2.4) L Total Bilirubin 0.2 mg/dL (0.2-1.0) Direct Bilirubin 0.1 mg/dL (0.0-0.2) Aspartate Amino Transferase (AST) 15 U/L (15-37) Alanine Aminotransferase (ALT) 18 U/L (14-59) Alkaline Phosphatase 102 U/L (46-116) Creatine Kinase 32 U/L (26-192) Creatine Kinase MB (Mass) 1.2 ng/mL (0.0-3.6) Creatine Kinase MB Relative Index 3.8 % (0-4) Troponin I Quantitative < 0.017 ng/mL (0-0.055) YX-Myo-B-Type Natriuretic Peptide 511 pg/mL (0-124) H Total Protein 7.9 g/dL (6.4-8.2) Albumin 3.4 g/dL (3.4-5.0) Lipase 220 U/L (73-393) EKG EKG [] EKG timed 8:[address] Morris demonstrates heart rate of 101, sinus tachycardia as there is a pediatric QRS, normal OR interval of 170, normal QRS width of 78, normal QTC of 423. Patient has a none summary T-wave inversion in V1 and V2 patient also has a Q-wave inferiorly in leads 3 and aVF which is likely old and pathologic. Radiology/Procedures Radiology/Procedures [] Course & Med Decision Making Course & Med Decision Making Pertinent Labs and Imaging studies reviewed. (See chart for details) she is vital signs documented on the chart also demonstrate tachycardia, tachypnea, without hypoxia. My concern upon presentation obvious his postoperative pain with possible collection of intra-abdominal fluid after the AG drain is been dislodged inadvertently. This tachycardia and tachypnea may be related to pain patient is not short of breath. She's not having any chest pain obviously with postoperative discomfort pulmonary embolus was considered. Dr. Mcmanus [employer] note: All that approximately 9:40 PM [employer] called at of the service 9:45 PM Consult called back at Discussed the case I presented and they agreed with admission. They asked that I call the on-call hospitalist for admission and transfer. He also agreed with the idea of getting blood cultures as well as starting antibiotics empirically once his cultures were drawn. I did let him know that blood work was completed but not returned at this time. [employer] note: Internal medicine [employer] called at of the service paged 9:46 PM Consult called back at return focal 9:47 PM Discussed the case I presented and they agreed with admission. Time of acceptance 9:47 pm Patient presents with possibly dislodged biliary drain tube. Patient presents with subjective fevers and chills although nothing documented. The concern upon arrival was the fact that the biliary drain may have been dislodged patient was expressing increasing pain and fevers and chills my concern is postoperative infection. Patient blood cultures drawn, lactic acid completed, CBC demonstrated no elevation in the white blood cell or left shift. She is troponin is negative pro BNP is mildly at 511. Patient's EKG was unremarkable, patient's pain was improved with fluids and antiemetics and pain meds. Patient' s T scan was read by radiology with the following results limited images of the lung bases show patchy linear opacity of the right lower lobe likely atelectasis. The heart size within normal limits no pleural or pericardial effusion large hiatal hernia was noted there is percutaneous biliary drain extending from the right lower liver with atenolol in the descending duodenum all that are surgically absent trace amount of fluid is at the gallbladder fossa. There is no fluid collection suggestive the Dequincy. She does not appear significantly dilated all of these image findings are reviewed by me and are reassuring but given her subjective fevers and chills although no white count is present I would like her surgeon to take a look at her and make sure that she is okay to be dispositioned back home. After speaking to the on-call physician and he agrees with the evaluation to the hospitalist service within Antibiotics so Zosyn and Flagyl were given IV. sPoke with the internal medicine physician and accepted transfer this patient from our facility and there is at [facility] given the fact we have no surgical backup at this time today with a surgical postoperative complication Dragon Disclaimer Dragon Disclaimer This chart was dictated in whole or in part using Voice Recognition software in a busy, high-work load, and often noisy Emergency Department environment. It may contain unintended and wholly unrecognized errors or omissions. Departure Departure: Impression: Primary Impression: Postoperative pain Disposition: 02 XFER SHT-TRM HOSP Condition: GUARDED Referrals: KASSI SMALLS (PCP) BRANDAN MORRIS MD Jul 02, 2017 20:32
[2017-07-02] MEDS ORDERED: IV NORMAL SALINE 1,000ML 1,000 ML IV SCH (20:45)
[2017-07-02] MEDS ORDERED: ASPIRIN 81 MG TAB.CHEW PO ONE (20:45)
[2017-07-02] MEDS ORDERED: HYDROmorphone PF 1 MG/ML DISP.SYRIN IV/SQ PRN (20:45)
[2017-07-02] MEDS ORDERED: LORazepam 2 MG/ML VIAL IV ONE (20:45)
[2017-07-02] MEDS ORDERED: 0.9 % SODIUM CHLORIDE 10 ML DISP.SYRIN. IV PRN (20:45)
[2017-07-02] MEDS ORDERED: IOHEXOL 300 MG/ML 75 ML VIAL. IV ONE (20:50)
[2017-07-02 21:09] LABS: BASO # 0.1 x10^3/uL (0.0-0.2); BASO % 1 % (0-3); EOS # 0.2 x10^3/uL (0.0-0.7); EOS % 2 % (0-3); HEMATOCRIT 38.5 % (36.0-47.0); HEMOGLOBIN 12.7 g/dL (12.0-15.5); LYMPH # 1.5 x10^3/uL (1.0-4.8); LYMPH % 16 % (24-48); MEAN CORPUSCULAR HEMOGLOBIN 27 pg (25-35); MEAN CORPUSCULAR HGB CONC 33 g/dL (31-37); MEAN CORPUSCULAR VOLUME 81 fL (79-100); MONO % 10 % (0-9); NEUT # 6.8 x10^3uL (1.8-7.7); NEUT % 71 % (31-73); PLATELET COUNT 334 x10^3/uL (140-400); RED BLOOD COUNT 4.78 x10^6/uL (3.50-5.40); RED CELL DISTRIBUTION WIDTH 17.4 % (11.5-14.5); WHITE BLOOD COUNT 9.5 x10^3/uL (4.0-11.0)
[2017-07-02] MEDS ORDERED: ONDANSETRON PF 4 MG/2 ML VIAL. IV ONE (21:20)
[2017-07-02 21:35] LABS: ALBUMIN 3.4 g/dL (3.4-5.0); CALCIUM 9.3 mg/dL (8.5-10.1); CREATININE 0.8 mg/dL (0.6-1.0); DIRECT BILIRUBIN 0.1 mg/dL (0.0-0.2); GFR 70.5; MAGNESIUM 1.6 mg/dL (1.8-2.4); POTASSIUM 4.2 mmol/L (3.5-5.1); TOTAL BILIRUBIN 0.2 mg/dL (0.2-1.0); TOTAL PROTEIN 7.9 g/dL (6.4-8.2)
--- NOTE | 2017-07-02 21:36 | RAD ---
CT ABD PELV W/ IV CONTRST ONLY dated 07/02/2017 8:32 PM Indication: Abdominal pain, nausea and vomiting and chills recent cholecystectomy, history of bile leak Comparison: 06/17/2017 Technique: Contiguous axial imaging of the abdomen and pelvis performed after the intravenous administration of 75 cc Omnipaque 300. One or more of the following individualized dose reduction techniques were utilized for this examination: 1. Automated exposure control 2. Adjustment of the mA and/or kV according to patient size 3. Use of iterative reconstruction technique Findings: Limited images of lung bases show patchy and linear opacity in the right lower lobe, likely atelectasis. Heart size within normal limits. No pleural or pericardial effusion. Large hiatal hernia. There is a percutaneous biliary drain extending from the right lobe liver with tip coiled at the descending duodenum. Gallbladder is surgically absent. Trace amount of fluid at the gallbladder fossa. No focal fluid collection to suggest biloma. The biliary tree does not appear significantly dilated. Spleen is normal in size. Pancreas, adrenal glands and kidneys are unremarkable. No hydronephrosis. Unopacified GI tract is normal in caliber and contour. No focal bowel wall thickening. No inflammatory stranding in the mesentery. The appendix is normal in caliber. No ascites or lymphadenopathy. Images of pelvis show mild wall thickening of the urinary bladder. Uterus and adnexa are unremarkable. No free pelvic fluid or pelvic lymphadenopathy. Bone windows show no acute findings. Multilevel spondylosis. IMPRESSION: 1. Percutaneous transhepatic biliary drain in place. There is no significant biliary ductal dilatation. 2. Status post cholecystectomy with trace amount of fluid at the gallbladder fossa. There is no significant biloma. 3. Large hiatal hernia. 4. Mild wall thickening of the urinary bladder, nonspecific. Consider acute or chronic cystitis. Electronically signed by: Richard Gill MD (07/02/2017 9:32 PM) [facility]
--- NOTE | 2017-07-02 22:06 | EKG ---
[facility] ED [facility] [place] [address] Test Date: 2017-07-02 Test Time: 20:42:59 Pat Name: ASHLY BREEN Department: Room: Gender: F [employer]: BRIELLE : [id number] Requested By: BRANDAN SOTO Order Number: [id number] Reading MD: Measurements Intervals [place] Rate: 101 P: 43 MS: 170 QRS: 25 QRSD: 78 T: 33 QT: 326 QTc: 423 Interpretive Statements SINUS TACHYCARDIA LEFT ATRIAL ABNORMALITY QRS(T) CONTOUR ABNORMALITY CONSIDER ANTEROLATERAL MYOCARDIAL DAMAGE CONSISTENT WITH INFERIOR INFARCT PROBABLY OLD RI6.01 Unconfirmed report No previous ECG available for comparison
[2017-07-02] MEDS ORDERED: PIPERACILLIN/TAZOBACTAM 4.5 GM VIAL IV ONE (22:09)
[2017-07-02] MEDS ORDERED: IV NORMAL SALINE 50ML 50 ML ONE (22:09)
[2017-07-02] MEDS ORDERED: MAGNESIUM SULFATE 2GM 50 ML IV ONE ×2 (22:09→22:15)
[2017-07-02 23:05] VITALS: BP 140/81
[2017-07-03] MEDS: PIPERACILLIN/TAZOBACTAM 4.5 GM in IV NORMAL SALINE 50ML 50 ML IV ONE (00:20)
[2017-07-03] MEDS ORDERED: HYDROmorphone PF 1 MG/ML DISP.SYRIN IV ONE (02:15)
--- NOTE | 2017-07-03 10:39 | RAD ---
AP portable chest radiograph July 02, 2017 Clinical History: Chest pain since earlier tonight. An AP portable erect digital radiograph of the chest was obtained. Comparison study is dated 05/21/2016. The cardiac silhouette is normal in size. The thoracic aorta is mildly tortuous. There is a moderate-sized hiatal hernia. A 8 mm calcified granuloma is seen involving the right upper lobe, unchanged. No acute pulmonary infiltrate is seen. No pleural effusion or pneumothorax is noted. Degenerative changes are seen involving the thoracic spine and both shoulders. Impression: No acute abnormality is seen.
== END 2017-07-03 00:25 | disposition short-term general hospital (02) ==
LOC: ER 20:27
DX: G89.18 Other acute postprocedural pain (principal); R10.11 Right upper quadrant pain; R50.9 Fever, unspecified; R00.0 Tachycardia, unspecified; R06.82 Tachypnea, not elsewhere classified; R11.2 Nausea with vomiting, unspecified; R00.2 Palpitations; F41.9 Anxiety disorder, unspecified; J45.909 Unspecified asthma, uncomplicated; F32.9 Major depressive disorder, single episode, unspecified; I10 Essential (primary) hypertension; E03.9 Hypothyroidism, unspecified; Z90.49 Acquired absence of other specified parts of digestive tract; Z91.040 Latex allergy status; Z88.8 Allergy status to other drugs, medicaments and biological substances
CPT/HCPCS: 36415; 71010; 74177; 80048; 80076; 82553; 83605; 83690; 83735; 83880; 84443; 84484; 85025; 87040; 93005; 96361; 96365; 96366; 96368; 96375; 96376; 99285; J1170; J2060; J2405; J2543; J3475; J3490; Q9967; J7030

== ENCOUNTER → 2017-08-31 | Outpatient (CLI) | payer MEDICARE, MEDICAID ==
[~2017-08-31] MED LIST changes: +0.9 % SODIUM CHLORIDE 10 ML VIAL ONE; +DEXAMETHASONE SOD PHOS 4 MG/ML VIAL ONE; +LIDOCAINE 1% PF 30 ML VIAL. ONE
== END | disposition home or self-care (01) ==
LOC: SURG 15:28
PROVIDERS: ATTEND Anesthesiology
DX: M54.16 Radiculopathy, lumbar region (principal); J45.909 Unspecified asthma, uncomplicated; M19.91 Primary osteoarthritis, unspecified site; Z72.0 Tobacco use
CPT/HCPCS: 62323; 99204; J1100; J2001

== ENCOUNTER 2017-11-28 06:25 | Emergency (ER) | payer MEDICARE, MEDICAID ==
[~2017-11-28] VITALS: Ht 162.6 cm; Wt 67.7 kg
[~2017-11-28 06:25] MED LIST changes: -0.9 % SODIUM CHLORIDE 10 ML VIAL ONE; -DEXAMETHASONE SOD PHOS 4 MG/ML VIAL ONE; -LIDOCAINE 1% PF 30 ML VIAL. ONE
[2017-11-28 06:34] VITALS: BP 190/100
[2017-11-28] MEDS ORDERED: ONDANSETRON PF 4 MG/2 ML VIAL. IV ONE (07:30)
[2017-11-28] MEDS ORDERED: methylPREDNISolone SOD SUCC PF 125 MG/2 ML VIAL. IV ONE (07:30)
[2017-11-28] MEDS ORDERED: oxyCODONE/APAP 10/325 1 TAB TABLET PO ONE (08:30)
--- NOTE | 2017-11-28 09:04 | PHYS DOC ---
General Chief Complaint: LOWER EXT PAIN Stated Complaint: LEG SWELLING Time Seen by MD: 07:16 Source: patient Exam Limitations: no limitations Problems: History of Present Illness Initial Comments Patient is a 72-year-old female brought to the ED by EMS with an exacerbation of her chronic sciatica symptoms. Patient states that she follows with pain management she gets epidural injections, she has history of multiple falls with injuries in the past which have caused her to have chronic low back pain. No recent falls no new leg weakness or saddle anesthesia or bowel or bladder symptoms. She says her symptoms are identical to her prior sciatica symptoms and as it is the weekend she is unable to get in with her doctor. On arrival she is hypertensive 190/100 , she states she takes blood pressure medications but did not take them this morning as she had some nausea due to the severe pain. On my evaluation she does not appear to be in severe pain unless she moves. Onset: other Severity: severe Pain/Injury Location: right leg Method of Injury: other Modifying Factors: worse with jarring, worse with movement, improves with rest Allergies: Coded Allergies: gabapentin (Verified Allergy, Intermediate, 07/02/17) makes her go crazy latex (Verified Allergy, Intermediate, 01/25/16) baclofen (Verified Allergy, Mild, Rash, 05/22/16) Past Medical History Medical History: other (hypertension, hypothyroidism, COPD, ADD, awake, right- sided deafness, chronic back pain and sciatica, migraines, syncope, aortic stenosis, fibromyalgia, GERD, peptic ulcer disease) Surgical History: other (ORIF left femur from fracture, bilateral total knee replacements) Social History Smoker: cigarettes Alcohol: none Drugs: none Review of Systems Constitutional: denies chills, denies diaphoresis, denies fever, denies malaise Respiratory: denies cough, denies shortness of breath Cardiovascular: denies chest pain, denies palpitations, denies syncope Gastrointestinal: denies abdominal pain, denies diarrhea, nausea, denies vomiting Genitourinary: see HPI, denies dysuria, denies frequency, denies hematuria Musculoskeletal: see HPI Psychiatric/Neurological: denies headache, denies numbness, denies paresthesia , denies weakness Physical Exam General Appearance: no apparent distress HEENT: PERRL/EOMI, normal ENT inspection Neck: non-tender, supple Cardiovascular/Respiratory: normal peripheral pulses, no respiratory distress Back: no CVA tenderness, no vertebral tenderness Neurologic/Tendon: normal sensation, normal motor functions, normal tendon functions, responds to pain, no evidence tendon injury, other (DTRs/strength/ sensory appear to be equal and intact bilateral lower extremities, negative straight leg raise bilaterally) Skin: normal color, warm/dry Orders, Labs, Meds Patient received intravenous Solu-Medrol and fentanyl. 0902: I rechecked the patient once again, she is sleeping with no discomfort. She does arouse easily to verbal stimuli and states her pain has resolved. She has requested that we contact her daughter to come pick her up. Upon discharge signs and symptoms to monitor for as well as indications for urgent return to the department were discussed. She was advised to go home and take her blood pressure medications. No driving or operating machinery while under the influence of sedative medications. Advised to follow-up with her doctor tomorrow for recheck and further evaluation and treatment of her symptoms. Her questions were answered to her satisfaction to is advised to stop smoking and she expressed agreement and understanding of the treatment plan. Departure Time of Disposition: 09:02 Disposition: 01 HOME, SELF-CARE Diagnosis: chronic low back pain/sciatica exacerbation Condition: IMPROVED Patient Instructions: Chronic Back Pain, Sciatica, [id number] Additional Instructions: Take care with ambulating and standing asked for assistance today due to sedation from medications to prevent falls. Continue current medications. Prescription: Fielding 5 mg quantity 10 Follow-up with your doctor tomorrow for recheck and further pain management. Return to ED with new or changing symptoms. EUSEBIO SAMUELS DO Nov 28, 2017 09:04
[2017-11-28] MEDS ORDERED: HYDR-971 PO (09:05)
[2017-11-28] MEDS ORDERED: HYDROcodone/APAP 5/325MG 1 TAB TABLET PO ONE (09:15)
== END 2017-11-28 09:15 | disposition home or self-care (01) ==
LOC: ER 06:25
DX: M54.40 Lumbago with sciatica, unspecified side (principal); G89.29 Other chronic pain; I10 Essential (primary) hypertension; E03.9 Hypothyroidism, unspecified; J44.9 Chronic obstructive pulmonary disease, unspecified; M79.7 Fibromyalgia; K21.9 Gastro-esophageal reflux disease without esophagitis; Z87.11 Personal history of peptic ulcer disease; G43.909 Migraine, unspecified, not intractable, without status migrainosus; F17.210 Nicotine dependence, cigarettes, uncomplicated; Z88.8 Allergy status to other drugs, medicaments and biological substances; Z91.040 Latex allergy status
CPT/HCPCS: 96374; 96375; 96376; 99284; J2405; J2930; J3010

== ENCOUNTER → 2017-12-29 | Outpatient (CLI) | payer MEDICARE, MEDICAID ==
[~2017-12-29] MED LIST changes: +HYDR-971 PO
--- NOTE | 2017-12-29 12:14 | RAD ---
Sacrococcygeal spine, 12/29/2017: History: Tailbone pain No fracture or destructive bony lesion is seen. There are degenerative changes in the lower lumbar spine with severe degenerative disc disease at L4-5. There is a mild anterolisthesis at L4-5 due to extensive facet joint arthropathy. IMPRESSION: 1. No acute sacrococcygeal abnormality is detected. 2. Moderately severe degenerative change in the lower lumbar spine.
== END | disposition home or self-care (01) ==
LOC: PMG 11:07
PROVIDERS: ATTEND Physician Assistant Medical
DX: M53.3 Sacrococcygeal disorders, not elsewhere classified (principal); M47.896 Other spondylosis, lumbar region; M51.36 Other intervertebral disc degeneration, lumbar region
CPT/HCPCS: 72220

== ENCOUNTER 2018-03-08 07:50 | Emergency (ER) | payer MEDICARE, MEDICAID ==
--- NOTE | 2018-03-08 08:09 | ED.ADGEN ---
Past History Past Medical History: Anxiety, Asthma, Depression, Gallstones, Hypertension, Hypothyroid, Other Past Surgical History: Cholecystectomy, Other Smoking: Non-smoker Alcohol Use: Rarely Drug Use: None Adult General Chief Complaint Chief Complaint fall, hip pain HPI HPI Patient is a 72 year old female who presents with right hip pain. Patient states she got up to let her dog when her "sciatica midline knee give out". This caused her to fall. She struck her head, believes she had loss of consciousness as her dog tripped her face to wake her up. She laid on the floor for a few hours before she scooted to the next room so she can get a phone and call her daughter. Her daughter came and they contacted EMS. She denies any blood thinners. She reports pain in her right hip and femur area. She's had bilateral knee replacements in the past. No neck or back pain, no chest or abdominal pain. She was given 100 g IM fentanyl by EMS. PCP is Hawa Schmitz Review of Systems Review of Systems Constitutional: Denies fever or chills [] Eyes: Denies change in visual acuity, redness, or eye pain [] HENT: Denies nasal congestion or sore throat [] Respiratory: Denies cough or shortness of breath [] Cardiovascular: denies chest pain GI: Denies abdominal pain, nausea, vomiting, bloody stools or diarrhea [] : Denies dysuria or hematuria [] Musculoskeletal: per hpi Integument: Denies rash or skin lesions [] Neurologic: Denies headache, focal weakness or sensory changes [] Current Medications Current Medications Current Medications Medications (Trade) Dose Ordered Sig/Erick Start Time Stop Time Status Last Admin Dose Admin Fentanyl Citrate (Fentanyl 2ml Vial) 100 mcg 1X ONCE 03/08/18 09:45 03/08/18 09:46 DC 03/08/18 09:38 100 MCG Sodium Chloride 1,000 ml @ 1,000 mls/hr 1X ONCE 03/08/18 08:15 03/08/18 09:14 DC 03/08/18 08:23 1,000 MLS/HR Allergies Allergies Allergies Coded Allergies Type Severity Reaction Last Updated Verified gabapentin Allergy Intermediate 07/02/17 Yes latex Allergy Intermediate 01/25/16 Yes baclofen Allergy Mild Rash 05/22/16 Yes Physical Exam Physical Exam Constitutional: Well developed, well nourished, no acute distress, non-toxic appearance. [] HENT: Normocephalic, posterior left scalp hematoma, bilateral external ears normal, oropharynx moist, no oral exudates, nose normal. [] Eyes: PERRLA, EOMI, conjunctiva normal, no discharge. [] Neck: Normal range of motion, no tenderness, supple, no stridor. [] Cardiovascular:Heart rate regular with regular rhythm, no murmur [] Lungs & Thorax: Bilateral breath sounds clear to auscultation, no crepitus, no ttp Abdomen: soft, no tenderness, no masses, no pulsatile masses. [] Skin: Warm, dry, no erythema, no rash. [] Back: No tenderness, no CVA tenderness. [] Extremities: R hip ttp and R femur ttp with shortened and internally rotated leg with distal pulse and sensation intact, bilateral UE and LLE nontender and nondeformed, old healing abrasion to posterior left elbow Neurologic: Alert and oriented X 3, normal motor function, normal sensory function, no focal deficits noted. [] Psychologic: Affect normal, judgement normal, mood normal. [] Current Patient Data Vital Signs Vital Signs Date Time Temp Pulse Resp B/P (MAP) Pulse Ox O2 Delivery O2 Flow Rate FiO2 03/08/18 07:50 97.9 98 18 100 Room Air Lab Results Laboratory Tests Test 03/08/18 08:00 White Blood Count 11.2 x10^3/uL (4.0-11.0) H Red Blood Count 4.52 x10^6/uL (3.50-5.40) Hemoglobin 12.2 g/dL (12.0-15.5) Hematocrit 37.8 % (36.0-47.0) Mean Corpuscular Volume 84 fL (79-100) Mean Corpuscular Hemoglobin 27 pg (25-35) Mean Corpuscular Hemoglobin Concent 32 g/dL (31-37) Red Cell Distribution Width 16.0 % (11.5-14.5) H Platelet Count 223 x10^3/uL (140-400) Neutrophils (%) (Auto) 81 % (31-73) H Lymphocytes (%) (Auto) 12 % (24-48) L Monocytes (%) (Auto) 6 % (0-9) Eosinophils (%) (Auto) 1 % (0-3) Basophils (%) (Auto) 1 % (0-3) Neutrophils # (Auto) 9.1 x10^3uL (1.8-7.7) H Lymphocytes # (Auto) 1.3 x10^3/uL (1.0-4.8) Monocytes # (Auto) 0.7 x10^3/uL (0.0-1.1) Eosinophils # (Auto) 0.1 x10^3/uL (0.0-0.7) Basophils # (Auto) 0.1 x10^3/uL (0.0-0.2) Sodium Level 137 mmol/L (136-145) Potassium Level 3.6 mmol/L (3.5-5.1) Chloride Level 100 mmol/L (98-107) Carbon Dioxide Level 23 mmol/L (21-32) Anion Gap 14 (6-14) Blood Urea Nitrogen 10 mg/dL (7-20) Creatinine 0.4 mg/dL (0.6-1.0) L Estimated GFR (Cockcroft-Gault) 156.5 Glucose Level 103 mg/dL (70-99) H Calcium Level 9.4 mg/dL (8.5-10.1) Creatine Kinase 108 U/L (26-192) EKG EKG [] Radiology/Procedures Radiology/Procedures CT head: IMPRESSION: IMPRESSION: No acute intracranial hemorrhage. Low-attenuation in the periventricular white matter is suggestive of chronic small vessel ischemic changes. CXR: Mild diffuse interstitial prominence may be seen in setting of interstitial edema versus chronic interstitial lung disease. Pelvis/R hip/Femur: IMPRESSION: 1. There is a comminuted, displaced and foreshortened fracture involving the distal right femur at the femoral metadiaphysis in the region of the femoral component of the right total knee arthroplasty. There is approximately one half shaft width displacement ventrally of the proximal femur. 2. No fracture or dislocation involving the right femoral acetabular joint. Course & Med Decision Making Course & Med Decision Making Pertinent Labs and Imaging studies reviewed. (See chart for details) Pt given additional 50mcg IV fentanyl for pain, radiographs and labs obtained. XRay show that pt have complicated distal femur fracture involving knee hardware , likely will require full revision at this point. I consulted oncall orthopedic physician at [facility], Dr. Reese, who confirmed this will require higher level of care. Contacted med, pt accepted by Dr. Chong. Pt given additional 100 mcg of fentanyl and I with assistance of nursing completely extended leg to length and placed posterior leg splint. Pt had good distal neruovascular status post splint. Will transfer via EMS to . total critical care time excluding procedures: 35 minutes Final Impression Final Impression R comminuted femur fracture Fall Problems: Dragon Disclaimer Dragon Disclaimer This electronic medical record was generated, in whole or in part, using a voice recognition dictation system. LENIN BECKETT MD Mar 08, 2018 08:09
[2018-03-08] MEDS: IV NORMAL SALINE 1,000ML 1,000 ML IV ONE (08:23)
[2018-03-08 08:25] LABS: BASO # 0.1 x10^3/uL (0.0-0.2); BASO % 1 % (0-3); EOS # 0.1 x10^3/uL (0.0-0.7); EOS % 1 % (0-3); HEMATOCRIT 37.8 % (36.0-47.0); HEMOGLOBIN 12.2 g/dL (12.0-15.5); LYMPH # 1.3 x10^3/uL (1.0-4.8); LYMPH % 12 % (24-48); MEAN CORPUSCULAR HEMOGLOBIN 27 pg (25-35); MEAN CORPUSCULAR HGB CONC 32 g/dL (31-37); MEAN CORPUSCULAR VOLUME 84 fL (79-100); MONO # 0.7 x10^3/uL (0.0-1.1); MONO % 6 % (0-9); NEUT # 9.1 x10^3uL (1.8-7.7); NEUT % 81 % (31-73); PLATELET COUNT 223 x10^3/uL (140-400); RED BLOOD COUNT 4.52 x10^6/uL (3.50-5.40); WHITE BLOOD COUNT 11.2 x10^3/uL (4.0-11.0)
[2018-03-08 08:30] LABS: CALCIUM 9.4 mg/dL (8.5-10.1); CREATININE 0.4 mg/dL (0.6-1.0); GFR 156.5; POTASSIUM 3.6 mmol/L (3.5-5.1)
--- NOTE | 2018-03-08 08:55 | RAD ---
PQRS Compliance Statement: One or more of the following individualized dose reduction techniques were utilized for this examination: 1. Automated exposure control 2. Adjustment of the mA and/or kV according to patient size 3. Use of iterative reconstruction technique CT head without contrast 03/08/2018 8:24 AM INDICATION: Head trauma after fall COMPARISON: CT head May 21, 2016 TECHNIQUE: Multiple axial CT images of the head were obtained from skull base through the vertex without intravenous contrast. FINDINGS: Head: Ventricles, sulci and basal cisterns are within normal limits. Low-attenuation in the periventricular white matter is suggestive of chronic small vessel ischemic changes There is no hydrocephalus. Jc-white matter differentiation is normal. There is no acute intracranial hemorrhage. There is no mass, mass effect or midline shift. Posterior fossa is normal in appearance. Visualized portions of the orbits are normal. Paranasal sinuses are well aerated. Mastoid air cells are well aerated. Scalp and calvaria are normal. IMPRESSION: No acute intracranial hemorrhage. Low-attenuation in the periventricular white matter is suggestive of chronic small vessel ischemic changes. Electronically signed by: Shalonda Guy MD (03/08/2018 8:51 AM) [id number]
--- NOTE | 2018-03-08 09:05 | RAD ---
Chest radiograph 03/08/2018 8:50 AM INDICATION: Fall with right leg and hip pain COMPARISON: Chest radiograph July 02, 2017 TECHNIQUE: Frontal view of the chest is provided. FINDINGS: The cardiomediastinal silhouette is within normal limits. Calcified right hilar lymph nodes are identified. There is a 8 mm calcified granuloma in the right upper lobe. There is mild diffuse interstitial prominence. No pleural effusions or pneumothorax. The lungs are clear. No significant osseous abnormality is identified. IMPRESSION: Mild diffuse interstitial prominence may be seen in setting of interstitial edema versus chronic interstitial lung disease. Electronically signed by: Shalonda Guy MD (03/08/2018 9:01 AM) [id number]
--- NOTE | 2018-03-08 09:21 | RAD ---
Right hip and right femur radiograph March 08, 2018 INDICATION: Fall with pain. COMPARISON: Pelvis radiograph December 29, 2017. TECHNIQUE: AP pelvis, 2 dedicated views of the right hip and 4 views of the right femur are provided. FINDINGS: There is moderate degenerative disc disease at L4-L5 and L5-S1. Sacroiliac joints are well aligned. The pelvic ring appears intact. Moderate amount of stool is identified throughout the colon. No significant space narrowing involving the hips. Bone mineralization is within normal limits. No acute fracture involving the proximal right femur. No dislocation at the right femoral acetabular joint. Phleboliths are identified in the pelvis. A right total knee arthroplasty is visualized. There is a comminuted, displaced and foreshortened fracture involving the distal right femur at the level of the femoral component of the right knee hardware. Ventrally displaced proximal femoral diaphysis secures evaluation for knee joint effusion. There is no soft tissue gas. IMPRESSION: 1. There is a comminuted, displaced and foreshortened fracture involving the distal right femur at the femoral metadiaphysis in the region of the femoral component of the right total knee arthroplasty. There is approximately one half shaft width displacement ventrally of the proximal femur. 2. No fracture or dislocation involving the right femoral acetabular joint. Electronically signed by: Shalonda Guy MD (03/08/2018 9:18 AM) [id number]
[2018-03-08 11:00] VITALS: BP 156/72
== END 2018-03-08 11:55 | disposition short-term general hospital (02) ==
LOC: ER 07:50
DX: S72.491A Other fracture of lower end of right femur, initial encounter for closed fracture (principal); J45.909 Unspecified asthma, uncomplicated; F41.9 Anxiety disorder, unspecified; F32.9 Major depressive disorder, single episode, unspecified; I10 Essential (primary) hypertension; E03.9 Hypothyroidism, unspecified; Z88.8 Allergy status to other drugs, medicaments and biological substances; Z91.040 Latex allergy status; Z96.653 Presence of artificial knee joint, bilateral; W01.198A Fall on same level from slipping, tripping and stumbling with subsequent striking against other object, initial encounter; Y93.89 Activity, other specified; Y99.8 Other external cause status; Y92.89 Other specified places as the place of occurrence of the external cause
CPT/HCPCS: 29505; 36415; 70450; 71045; 73502; 73552; 80048; 82550; 85025; 96361; 96374; 96376; 99291; J3010; J7030

== ENCOUNTER → 2018-03-28 | Outpatient (CLI) | payer MEDICARE, MEDICAID ==
[2018-03-08 11:00] VITALS: BP 156/72
--- NOTE | 2018-03-29 09:49 | RAD ---
EXAM: Pelvis and right hip, 3 views. HISTORY: Pain. COMPARISON: None. FINDINGS: A frontal view the pelvis and frontal and frog-leg views of the right hip are obtained. There is no fracture, dislocation or subluxation. There is a suspected bone island within the proximal right femoral metaphysis. There is lumbar scoliosis and multilevel degenerative endplate remodeling with disc space narrowing and facet arthropathy. IMPRESSION: No acute osseous finding. Electronically signed by: Iris Rivero MD (03/29/2018 9:46 AM) [id number]
== END | disposition home or self-care (01) ==
LOC: PMG 15:19
PROVIDERS: ATTEND Physician Assistant Medical
DX: M25.551 Pain in right hip (principal); M41.86 Other forms of scoliosis, lumbar region; M48.061 Spinal stenosis, lumbar region without neurogenic claudication; I10 Essential (primary) hypertension; E78.5 Hyperlipidemia, unspecified; E03.9 Hypothyroidism, unspecified; K21.9 Gastro-esophageal reflux disease without esophagitis; Z87.891 Personal history of nicotine dependence
CPT/HCPCS: 73502

== ENCOUNTER 2018-06-03 10:06 | Emergency (ER) | payer MEDICARE, MEDICAID ==
[~2018-06-03] VITALS: Ht 162.6 cm; Wt 67.6 kg
[2018-06-03 10:46] LABS: BASO # 0.1 x10^3/uL (0.0-0.2); BASO % 1 % (0-3); EOS # 0.1 x10^3/uL (0.0-0.7); EOS % 2 % (0-3); HEMATOCRIT 41.5 % (36.0-47.0); HEMOGLOBIN 13.8 g/dL (12.0-15.5); LYMPH # 1.6 x10^3/uL (1.0-4.8); LYMPH % 24 % (24-48); MEAN CORPUSCULAR HEMOGLOBIN 28 pg (25-35); MEAN CORPUSCULAR HGB CONC 33 g/dL (31-37); MEAN CORPUSCULAR VOLUME 83 fL (79-100); MONO # 0.6 x10^3/uL (0.0-1.1); MONO % 9 % (0-9); NEUT # 4.4 x10^3uL (1.8-7.7); NEUT % 65 % (31-73); PLATELET COUNT 201 x10^3/uL (140-400); RED BLOOD COUNT 4.98 x10^6/uL (3.50-5.40); RED CELL DISTRIBUTION WIDTH 17.2 % (11.5-14.5); WHITE BLOOD COUNT 6.8 x10^3/uL (4.0-11.0)
[2018-06-03 10:59] LABS: ALBUMIN/GLOBULIN RATIO 1.1 (1.0-1.7); CALCIUM 9.6 mg/dL (8.5-10.1); CREATININE 0.5 mg/dL (0.6-1.0); GFR 120.9; POTASSIUM 4.3 mmol/L (3.5-5.1); TOTAL BILIRUBIN 0.5 mg/dL (0.2-1.0); TOTAL PROTEIN 7.5 g/dL (6.4-8.2)
[2018-06-03] MEDS ORDERED: ONDANSETRON PF 4 MG/2 ML VIAL. IV ONE (11:00)
[2018-06-03 11:12] LABS: BILIRUBIN,URINE NEG (NEG); CLARITY,URINE CLEAR; COLOR,URINE YELLOW; GLUCOSE,URINE NEG (NEG); NITRITE,URINE NEG (NEG); RBC,URINE OCC /HPF (0-2); UROBILINOGEN,URINE 0.2 mg/dL (0.2 mg/dL)
[2018-06-03 11:13] LABS: BACTERIA,URINE 0 /HPF (0-FEW); SQUAMOUS EPITHELIAL CELL,UR OCC /LPF; WBC,URINE 0 /HPF (0-4)
--- NOTE | 2018-06-03 12:06 | RAD ---
Right lower extremity venous ultrasound, 06/03/2018 : History: Right leg pain, recent femur fracture Duplex evaluation including grayscale, color flow and spectral Doppler analysis was performed. The femoral and popliteal veins show no filling defects to suggest DVT. The visualized deep veins in the right calf are unremarkable. There is peripatellar fluid anteriorly suggesting a knee joint effusion. There is also a small fluid collection along the posterior aspect of the knee. IMPRESSION: There is no sonographic evidence of deep vein thrombosis in the right lower extremity Electronically signed by: Golden Headley MD (06/03/2018 12:03 PM) [facility]
[2018-06-03] MEDS ORDERED: cloNIDine HCL 0.1 MG TABLET PO ONE (12:45)
[2018-06-03] MEDS ORDERED: KETOROLAC 30 MG/ML VIAL. IV ONE (12:45)
--- NOTE | 2018-06-03 13:13 | PHYS DOC ---
Past History Past Medical History: Anxiety, Asthma, Depression, Gallstones, Hypertension, Hypothyroid, Other Past Surgical History: Cholecystectomy, Other Smoking: Non-smoker Alcohol Use: Rarely Drug Use: None Adult General Chief Complaint Chief Complaint: LOWER EXT PAIN HPI HPI 72-year-old female patient with history of right distal femoral fracture in February 2018 who was discharged from rehabilitation yesterday brought in by EMS because of right lower extremity pain. Patient complaining of right lower extremity pain since yesterday as a constant pain that getting worse with movement. Patient states she had nausea and one episode of vomiting last night and rated her pain 10/ 10 and states her pain did not get getting better after 100 g nasal fentanyl given by EMS. Patient denies fever and chills, chest pain , shortness of breath, new focal neuro deficit, fall and injury. She didn't take her home medication today. Review of Systems Review of Systems Constitutional: Denies fever or chills [] Eyes: Denies change in visual acuity, redness, or eye pain [] HENT: Denies nasal congestion or sore throat [] Respiratory: Denies cough or shortness of breath [] Cardiovascular: No additional information not addressed in HPI [] GI: Denies abdominal pain, bloody stools or diarrhea, post nausea and vomiting[ ] : Denies dysuria or hematuria [] Musculoskeletal: Reports back and joint pain Integument: Denies rash or skin lesions [] Neurologic: Denies headache, focal weakness or sensory changes [] Endocrine: Denies polyuria or polydipsia [] All other systems were reviewed and found to be within normal limits, except as documented in this note. Current Medications Current Medications Current Medications Medications (Trade) Dose Ordered Sig/Erick Start Time Stop Time Status Last Admin Dose Admin Clonidine HCl (Catapres) 0.1 mg 1X ONCE 06/03/18 12:45 06/03/18 12:46 DC 06/03/18 12:26 0.1 MG Fentanyl Citrate (Fentanyl 2ml Vial) 50 mcg 1X ONCE 06/03/18 11:00 06/03/18 11:01 DC 06/03/18 10:44 50 MCG Ketorolac Tromethamine (Toradol) 30 mg 1X ONCE 06/03/18 12:45 06/03/18 12:46 DC 06/03/18 12:26 30 MG Ondansetron HCl (Zofran) 4 mg 1X ONCE 06/03/18 11:00 06/03/18 11:01 DC 06/03/18 10:44 4 MG Allergies Allergies Allergies Coded Allergies Type Severity Reaction Last Updated Verified gabapentin Allergy Intermediate 07/02/17 Yes latex Allergy Intermediate 01/25/16 Yes baclofen Allergy Mild Rash 05/22/16 Yes Physical Exam Physical Exam Constitutional: Well developed, well nourished, mild distress, non-toxic appearance. [] HENT: Normocephalic, atraumatic Eyes: PERRLA, EOMI, conjunctiva normal, no discharge. [] Neck: Normal range of motion, no tenderness, supple, no stridor. [] Cardiovascular:Heart rate regular rhythm, no murmur [] Lungs & Thorax: Bilateral breath sounds clear to auscultation [] Abdomen: Bowel sounds normal, soft, no tenderness, no masses, no pulsatile masses. [] Skin: Warm, dry, no erythema, no rash. [] Back: No tenderness, no CVA tenderness. [] Extremities: Right lower extremity with no deformity or sign of injury, bilateral knees edema, right thigh tenderness, Neurologic: Alert and oriented X 3, normal motor function, normal sensory function, no focal deficits noted. [] Psychologic: Affect normal, judgement normal, mood normal. [] Current Patient Data Vital Signs Vital Signs Date Time Temp Pulse Resp B/P (MAP) Pulse Ox O2 Delivery O2 Flow Rate FiO2 06/03/18 12:26 83 194/98 06/03/18 12:13 18 99 Room Air 06/03/18 10:14 98.3 Lab Results Laboratory Tests Test 06/03/18 10:32 06/03/18 10:51 White Blood Count 6.8 x10^3/uL (4.0-11.0) Red Blood Count 4.98 x10^6/uL (3.50-5.40) Hemoglobin 13.8 g/dL (12.0-15.5) Hematocrit 41.5 % (36.0-47.0) Mean Corpuscular Volume 83 fL (79-100) Mean Corpuscular Hemoglobin 28 pg (25-35) Mean Corpuscular Hemoglobin Concent 33 g/dL (31-37) Red Cell Distribution Width 17.2 % (11.5-14.5) H Platelet Count 201 x10^3/uL (140-400) Neutrophils (%) (Auto) 65 % (31-73) Lymphocytes (%) (Auto) 24 % (24-48) Monocytes (%) (Auto) 9 % (0-9) Eosinophils (%) (Auto) 2 % (0-3) Basophils (%) (Auto) 1 % (0-3) Neutrophils # (Auto) 4.4 x10^3uL (1.8-7.7) Lymphocytes # (Auto) 1.6 x10^3/uL (1.0-4.8) Monocytes # (Auto) 0.6 x10^3/uL (0.0-1.1) Eosinophils # (Auto) 0.1 x10^3/uL (0.0-0.7) Basophils # (Auto) 0.1 x10^3/uL (0.0-0.2) Sodium Level 139 mmol/L (136-145) Potassium Level 4.3 mmol/L (3.5-5.1) Chloride Level 103 mmol/L (98-107) Carbon Dioxide Level 28 mmol/L (21-32) Anion Gap 8 (6-14) Blood Urea Nitrogen 6 mg/dL (7-20) L Creatinine 0.5 mg/dL (0.6-1.0) L Estimated GFR (Cockcroft-Gault) 120.9 BUN/Creatinine Ratio 12 (6-20) Glucose Level 101 mg/dL (70-99) H Calcium Level 9.6 mg/dL (8.5-10.1) Total Bilirubin 0.5 mg/dL (0.2-1.0) Aspartate Amino Transferase (AST) 21 U/L (15-37) Alanine Aminotransferase (ALT) 19 U/L (14-59) Alkaline Phosphatase 130 U/L (46-116) H Troponin I Quantitative < 0.017 ng/mL (0-0.055) Total Protein 7.5 g/dL (6.4-8.2) Albumin 4.0 g/dL (3.4-5.0) Albumin/Globulin Ratio 1.1 (1.0-1.7) Lipase 68 U/L (73-393) L Urine Collection Type Unknown Urine Color Yellow Urine Clarity Clear Urine pH 8.0 Urine Specific [place] 1.015 Urine Protein Neg (NEG-TRACE) Urine Glucose (UA) Neg mg/dL (NEG) Urine Ketones (Stick) Neg mg/dL (NEG) Urine Blood Neg (NEG) Urine Nitrite Neg (NEG) Urine Bilirubin Neg (NEG) Urine Urobilinogen Dipstick 0.2 mg/dL (0.2 mg/dL) Urine Leukocyte Esterase Neg (NEG) Urine RBC Occ /HPF (0-2) Urine WBC 0 /HPF (0-4) Urine Squamous Epithelial Cells Occ /LPF Urine Bacteria 0 /HPF (0-FEW) EKG EKG [] Radiology/Procedures Radiology/Procedures [][address] [id number] IMAGING REPORT Signed PATIENT: ASHLY BREEN ACCOUNT: [id number] : 1945 LOCATION: ER AGE: 72 SEX: F EXAM STATUS: REG ER ORD. PHYSICIAN: YOHANA WHITMAN MD REASON: right leg pain PROCEDURE: VENOUS LOWER EXTREMITY RIGHT Right lower extremity venous ultrasound, 06/03/2018 : History: Right leg pain, recent femur fracture Duplex evaluation including grayscale, color flow and spectral Doppler analysis was performed. The femoral and popliteal veins show no filling defects to suggest DVT. The visualized deep veins in the right calf are unremarkable. There is peripatellar fluid anteriorly suggesting a knee joint effusion. There is also a small fluid collection along the posterior aspect of the knee. IMPRESSION: There is no sonographic evidence of deep vein thrombosis in the right lower extremity Electronically signed by: Golden Headley MD (06/03/2018 12:03 PM) [facility] DICTATED AND SIGNED BY: GOLDEN HEADLEY MD DATE: 06/03/18 1203 CC: YOHANA WHITMAN MD; KASSI SMALLS ~ Course & Med Decision Making Course & Med Decision Making Pertinent Labs and Imaging studies reviewed. (See chart for details) Evaluation of patient in ER showed 72-year-old female patient with complaining of right lower extremity pain after femoral fracture 2 months ago. Patient was discharged from rehabilitation last night and complaining of nausea and vomiting. Patient had unremarkable physical exam except for elevation of blood pressure 190s and stated she didn't take her medication today. Patient had unremarkable physical exam and negative ultrasound of right lower extremity for DVT and treated with fentanyl and was falling sleep but still stated her pain was 9/10. Blood pressure improved with clonidine and patient instructed to continue her home pain medication including oxycodone and follow up with her primary care and orthopedic physician. [] Dragon Disclaimer Dragon Disclaimer This electronic medical record was generated, in whole or in part, using a voice recognition dictation system. Departure Departure: Impression: Primary Impression: Pain of right lower extremity Additional Impressions: Hypertensive urgency Nausea and vomiting Disposition: HOME, SELF-CARE (at 1310) Condition: IMPROVED Referrals: KASSI SMALLS (PCP) Patient Instructions: Arthralgia, Hypertension, Nausea and Vomiting Additional Instructions: Drink plenty of liquids Follow-up with your primary care physician in 3-5 days Return to ER if not getting better Apply ice on your lower extremity Follow-up with your surgeon in 2 or 3 days Continue your home medication Problem Qualifiers YOHANA WHITMAN MD Jun 03, 2018 13:12
[2018-06-03 13:31] VITALS: BP 148/79
== END 2018-06-03 13:30 | disposition home or self-care (01) ==
LOC: ER 10:06
DX: M79.604 Pain in right leg (principal); I16.0 Hypertensive urgency; R11.2 Nausea with vomiting, unspecified; F41.9 Anxiety disorder, unspecified; J45.909 Unspecified asthma, uncomplicated; F32.9 Major depressive disorder, single episode, unspecified; I10 Essential (primary) hypertension; E03.9 Hypothyroidism, unspecified; Z88.8 Allergy status to other drugs, medicaments and biological substances; Z91.040 Latex allergy status
CPT/HCPCS: 36415; 80053; 81001; 83690; 84484; 85025; 93971; 96374; 96375; 99285; J1885; J2405; J3010

== ENCOUNTER 2019-03-08 16:56 | Observation (INO) | payer MEDICARE, MEDICAID ==
[~2019-03-08] VITALS: Ht 162.6 cm; Wt 69.0 kg
[~2019-03-08 16:56] MED LIST changes: +ALBU2.5V8 INH; -ALBU8.5H8 INH; -AMLO10TA2 PO; +AMLO10TA8 PO; +HYDR-2155 PO; -HYDR-2758 PO; -HYDR-2766 PO; +HYDR-2769 PO; +HYDR-3165 PO; -HYDR-971 PO
--- NOTE | 2019-03-08 17:21 | PHYS DOC ---
Past History Past Medical History: Anxiety, Asthma, Depression, Gallstones, Hypertension, Hypothyroid, Other (ANA GODOY DO) Past Surgical History: Cholecystectomy, Other (ANA GODOY DO) Smoking: Non-smoker Alcohol Use: Rarely Drug Use: None (ANA GODOY DO) Adult General Chief Complaint Chief Complaint: CHEST PAIN HPI HPI Patient is a 73-year-old female who presents with chest pain and diaphoresis that started approximately 1400 today lasted 15-20 minutes. Resolved on its own. Patient was given aspirin by EMS in route. Denies any current chest discomfort. Patient has had for 5 episodes prior to this without seeking medical care. Denies any current nausea or vomiting. There was some nausea during the episode of chest discomfort.[] (ANA GODOY DO) Review of Systems Review of Systems Constitutional: Denies fever or chills [] Eyes: Denies change in visual acuity, redness, or eye pain [] HENT: Denies nasal congestion or sore throat [] Respiratory: Denies cough or shortness of breath [] Cardiovascular: No additional information not addressed in HPI [] GI: Denies abdominal pain, nausea, vomiting, bloody stools or diarrhea [] : Denies dysuria or hematuria [] Musculoskeletal: Denies back pain or joint pain [] Integument: Denies rash or skin lesions [] Neurologic: Denies headache, focal weakness or sensory changes [] Endocrine: Denies polyuria or polydipsia [] All other systems were reviewed and found to be within normal limits, except as documented in this note. (ANA GODOY DO) Allergies Allergies Allergies Coded Allergies Type Severity Reaction Last Updated Verified gabapentin Allergy Intermediate 07/02/17 Yes latex Allergy Intermediate 01/25/16 Yes baclofen Allergy Mild Rash 05/22/16 Yes (ANA GODOY DO) Physical Exam Physical Exam Constitutional: Well developed, well nourished, no acute distress, non-toxic appearance. [] HENT: Normocephalic, atraumatic, bilateral external ears normal, oropharynx moist, no oral exudates, nose normal. [] Eyes: PERRLA, EOMI, conjunctiva normal, no discharge. [] Neck: Normal range of motion, no tenderness, supple, no stridor. [] Cardiovascular:Heart rate regular rhythm, no murmur [] Lungs & Thorax: Bilateral breath sounds clear to auscultation [] Abdomen: Bowel sounds normal, soft, no tenderness, no masses, no pulsatile masses. [] Skin: Warm, dry, no erythema, no rash. [] Back: No tenderness, no CVA tenderness. [] Extremities: No tenderness, no cyanosis, no clubbing, ROM intact, no edema. [] Neurologic: Alert and oriented X 3, normal motor function, normal sensory function, no focal deficits noted. [] Psychologic: Affect normal, judgement normal, mood normal. [] (ANA GODOY DO) EKG EKG EKG shows a sinus rhythm at 83 bpm, normal axis, QTC of 414 ms, no ST elevations. Interpreted by me at 1714[] (ANA GODOY DO) Radiology/Procedures Radiology/Procedures [] (ANA GODOY DO) Impressions: Chest x-ray demonstrates no acute process. (LAYO LOVE Jr., DO) Course & Med Decision Making Course & Med Decision Making Pertinent Labs and Imaging studies reviewed. (See chart for details) ED course: Patient arrived, was placed in bed, and tolerated exam well. At the time of this dictation laboratory and imaging findings are still in process. Patient care endorsed to the oncoming physician at 1800[] (ANA GODOY DO) Course & Med Decision Making A cardiac workup has returned on the patient and is unremarkable. Findings have been reviewed with patient and family. I've discussed the case with Dr. Murdock and patient will be admitted under his care to telemetry. (LAYO LOVE Jr., DO) Dragon Disclaimer Dragon Disclaimer This electronic medical record was generated, in whole or in part, using a voice recognition dictation system. (ANA GODOY DO) Departure Departure: Impression: Primary Impression: Chest pain Disposition: ADMITTED INPATIENT Admitting Physician: Raymundo Murdock (LAYO LOVE Jr., DO) Condition: IMPROVED Referrals: KASSI SMALLS (PCP) Problem Qualifiers Primary Impression: Chest pain Chest pain type: unspecified Qualified Codes: R07.9 - Chest pain, unspecified ANA GODOY DO Mar 08, 2019 17:21 LAYO LOVE Jr., DO Mar 08, 2019 18:58
[2019-03-08 17:32] LABS: BASO # 0.1 x10^3/uL (0.0-0.2); BASO % 1 % (0-3); EOS # 0.1 x10^3/uL (0.0-0.7); EOS % 3 % (0-3); HEMATOCRIT 39.4 % (36.0-47.0); HEMOGLOBIN 13.2 g/dL (12.0-15.5); LYMPH # 1.9 x10^3/uL (1.0-4.8); LYMPH % 36 % (24-48); MEAN CORPUSCULAR HEMOGLOBIN 31 pg (25-35); MEAN CORPUSCULAR HGB CONC 34 g/dL (31-37); MEAN CORPUSCULAR VOLUME 93 fL (79-100); MONO # 0.6 x10^3/uL (0.0-1.1); MONO % 11 % (0-9); NEUT # 2.6 x10^3uL (1.8-7.7); NEUT % 49 % (31-73); PLATELET COUNT 208 x10^3/uL (140-400); RED BLOOD COUNT 4.23 x10^6/uL (3.50-5.40); RED CELL DISTRIBUTION WIDTH 13.6 % (11.5-14.5); WHITE BLOOD COUNT 5.3 x10^3/uL (4.0-11.0)
[2019-03-08 17:51] LABS: ALBUMIN 3.7 g/dL (3.4-5.0); ALBUMIN/GLOBULIN RATIO 1.1 (1.0-1.7); CREATININE 0.5 mg/dL (0.6-1.0); GFR 120.6; MAGNESIUM 1.8 mg/dL (1.8-2.4); POTASSIUM 4.1 mmol/L (3.5-5.1); TOTAL BILIRUBIN 0.3 mg/dL (0.2-1.0)
--- NOTE | 2019-03-08 18:27 | EKG ---
[address] [address] Test Date: 2019-03-08 Test Time: 16:59:12 Pat Name: ASHLY BREEN Department: Room: Gender: F Stunner: DOMINGUEZ : 1945 Requested By: ANA GODOY Order Number: [id number] Reading MD: Alberto Espinosa Measurements Intervals [place] Rate: 83 P: 35 MD: 200 QRS: 20 QRSD: 84 T: 28 QT: 352 QTc: 414 Interpretive Statements SINUS RHYTHM Electronically Signed On 03-13-2019 13:29:05 CDT by Alberto Espinosa
[2019-03-08] MEDS ORDERED: NITROGLYCERIN SUBLINGUAL 0.4 MG BOTTLE OF 25. SL PRN (19:00)
[2019-03-08] MEDS ORDERED: MORPHINE SULFATE 2 MG/ML DISP.SYRIN. IV PRN (19:00)
[2019-03-08] MEDS ORDERED: ONDANSETRON PF 4 MG/2 ML VIAL. IV PRN (19:00)
[2019-03-08 20:22] VITALS: BP 159/84
[2019-03-08] MEDS ORDERED: GABA-586 PO (21:47)
[2019-03-08] MEDS ORDERED: ROPI0.5T PO (21:47)
[2019-03-08] MEDS ORDERED: CHOL500016 PO (21:47)
[2019-03-08] MEDS ORDERED: TIZA4CAP PO (21:47)
[2019-03-08] MEDS ORDERED: CETI10TA16 PO (21:47)
[2019-03-08] MEDS ORDERED: LOSA50TA86 PO (21:47)
[2019-03-08] MEDS ORDERED: rOPINIRole 1 MG TABLET. PO SCH (22:00)
[2019-03-08] MEDS ORDERED: MIRABEGRON 25 MG TAB.ER.24H PO SCH (22:00)
[2019-03-08] MEDS ORDERED: LOSARTAN 50 MG TABLET. PO ONE (22:00)
[2019-03-08] MEDS ORDERED: SUMAtriptan SUCCINATE 50 MG TABLET PO PRN (22:00)
[2019-03-08 22:22] VITALS: BP 109/60
[2019-03-08] MEDS: GABAPENTIN 300 MG CAPSULE. PO SCH (22:26)
[2019-03-08] MEDS: tiZANidine 4 MG TABLET. PO SCH (22:26)
[2019-03-08 23:30] VITALS: BP 113/71
--- NOTE | 2019-03-09 01:32 | RAD ---
Chest AP portable at 1734: Reason for examination: Chest pain. Comparison is made to previous study dated 03/08/2018. The heart size is normal. Mediastinum is unremarkable. Lung agosto continue show a calcified granuloma at the right apex. There appears be mild increase in interstitial markings in the right lung field compared to previous exam. This could reflect some asymmetric interstitial edema or fibrosis. No consolidated infiltrates or pleural effusions are seen.. No acute bony abnormalities are seen. Impression: Mildly increased interstitial markings in the right lung field compared. Previous exam which may reflect some mild asymmetric interstitial edema or fibrosis. Recommend clinical correlation and follow-up. Electronically signed by: Nani Garrett MD (03/09/2019 1:29 AM) [facility]
[2019-03-09 05:10] VITALS: BP 127/74
[2019-03-09 06:16] LABS: HEMATOCRIT 36.9 % (36.0-47.0); HEMOGLOBIN 12.6 g/dL (12.0-15.5); RED BLOOD COUNT 3.98 x10^6/uL (3.50-5.40); RED CELL DISTRIBUTION WIDTH 13.5 % (11.5-14.5); WHITE BLOOD COUNT 4.9 x10^3/uL (4.0-11.0)
[2019-03-09 06:26] LABS: CALCIUM 8.9 mg/dL (8.5-10.1); CREATININE 0.6 mg/dL (0.6-1.0); GFR 97.7; POTASSIUM 3.8 mmol/L (3.5-5.1)
[2019-03-09] MEDS ORDERED: LEVOTHYROXINE 100 MCG TABLET PO SCH (07:30)
[2019-03-09] MEDS: tiZANidine 4 MG TABLET. PO SCH (08:43)
[2019-03-09] MEDS: GABAPENTIN 300 MG CAPSULE. PO SCH ×2 (08:43→15:23)
[2019-03-09] MEDS ORDERED: LOSARTAN 50 MG TABLET. PO SCH (09:00)
[2019-03-09] MEDS ORDERED: CHOLECALCIFEROL (VITAMIN D3) 1,000 UNIT TABLET PO SCH (09:00)
[2019-03-09] MEDS ORDERED: DULoxetine HCL 60 MG CAPSULE.DR PO SCH (09:00)
[2019-03-09] MEDS ORDERED: CETIRIZINE HCL 10 MG TABLET PO SCH (09:00)
--- NOTE | 2019-03-09 09:22 | PDOC2 ---
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 She reports the episode started while out smoking a roast. She states she had just previously been working in her yard. She says her neighbor found her and called EMS. By arrival of ambulance she says pain was already resolving. Episode lasted about 20 minutes. She reports several episodes of chest pain over the last 3 months, all similar and during light activity. Other episodes have lasted only 5-10 minutes and all resolve with rest. She denies any symptoms prior to the last 3 months. She did undergo an echo in February 2018 revealing mild aortic stenosis. She reports that she was advised no surgeries from then on due to her heart though she is unsure of the reason. She denies prior stress testing or cardiac cath. She is currently resting quietly with no chest pain, no dyspnea, no palpitations, lightheadedness. She denies congestive symptoms. She reports occasional falls which she believes is due to her knees. Last year she fell resulting in a femur fracture and CHI with LOC. She reports limited functional capacity due to her knees. Past Medical History echo 03/09/18 Rest Echo: Normal left ventricular systolic function. EF~ 60% Mild concentric left ventricular hypertrophy Sclerotic aortic valve with mildly elevated peak velocity of 2.0 m/sec. No significant stenosis (mean gradient 9 mm Hg). Trace regurgitation Suspicious left to right inter atrial shunt seen by color Doppler suggest of possible patent foramen ovale. Consider DENIS if clinically indicated No significant pericardial effusion ADD (attention deficit disorder) Aortic stenosis chronic pain Arthritis of back Arthritis of both hands Arthritis of low back (HCC) Arthritis of neck (HCC) right upper extremity paraesthesia Asthma Falls Concussion with LOC Depression with anxiety Essential hypertension Gall bladder disease PUD Hearing loss bilaterally, cannot afford hearing aids Hypothyroid Migraines RLS (restless legs syndrome) Sciatica of right side Seasonal allergies Teeth missing Tinnitus, bilateral Urinary urgency Wears glasses Insomnia Past Surgical History BACK SURGERY lumbar CHOLECYSTECTOMY FEMUR FRACTURE TX Left Femur fracture right with closed reduction KNEE SURGERY Bilateral Family History Comment: occasionally, socially Drug use: No 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 Smoker Quit date: 12/08/2017 Occasional ETOH use No illicit drugs Current Medications Current Medications Ondansetron HCl (Zofran) 4 mg PRN Q4HRS PRN IV NAUSEA/VOMITING; Start 03/08/19 at 19:00; Stop 03/09/19 at 18:59 Morphine Sulfate (Morphine 2mg Syringe) 2 mg PRN Q2HR PRN IV PAIN; Start at 19:00; Stop 03/09/19 at 18:59 Nitroglycerin (Nitrostat) 0.4 mg PRN Q5MIN PRN SL CHEST PAIN; Start 03/08/19 at 19:00; Stop 03/09/19 at 18:59 Gabapentin (Neurontin) 300 mg TID PO Last administered on 03/09/19at 08:43; Start 03/08/19 at 22:00 Levothyroxine Sodium (Synthroid) 100 mcg DAILYAC PO Last administered on at 08:42; Start 03/09/19 at 07:30 Losartan Potassium (Cozaar) 50 mg DAILY PO Last administered on 03/09/19at 08:43 ; Start 03/09/19 at 09:00 Cetirizine HCl (ZyrTEC) 10 mg DAILY PO Last administered on 03/09/19 08:43; Start 03/09/19 at 09:00 Vitamin D (Vitamin D3) 5,000 unit DAILY PO Last administered on 03/09/19at 08:42 ; Start 03/09/19 at 09:00 Duloxetine HCl (Cymbalta) 60 mg DAILY PO Last administered on 03/09/19at 08:42; Start 03/09/19 at 09:00 Mirabegron (Myrbetriq) 50 mg QHS PO Last administered on 03/08/19 22:24; Start 03/08/19 at 22:00 Ropinirole HCl (Requip) 1 mg HS PO Last administered on 03/08/19at 22:24; Start 03/08/19 at 22:00 Sumatriptan Succinate (Imitrex) 100 mg PRN DAILY PRN PO MIGRAINE HEADACHE; Start 03/08/19 at 22:00 Tizanidine HCl (Zanaflex) 4 mg BID PO Last administered on 03/09/19at 08:43; Start 03/08/19 at 22:00 Losartan Potassium (Cozaar) 50 mg 1X ONCE PO ; Start 03/08/19 at 22:00; Stop at 22:01; Status DC Active Scripts Active [place] 5-325 Tablet (Hydrocodone Bit/Acetaminophen) 1 Each Tablet 1 Tab PO PRN Q6HRS PRN Reported Cetirizine Hcl 10 Mg Tablet 1 Tab PO DAILY Requip (Ropinirole Hcl) 0.5 Mg Tablet 1 Mg PO HS Losartan Potassium (Losartan Potassium) 50 Mg Tablet 50 Mg PO DAILY Tizanidine Hcl 4 Mg Capsule 4 Mg PO BID Gabapentin (Gabapentin) 300 Mg Capsule 300 Mg PO TID Vitamin D3 (Cholecalciferol (Vitamin D3)) 5,000 Unit Tablet 1 Tab PO DAILY Imitrex (Sumatriptan Succinate) 100 Mg Tablet 100 Mg PO PRN DAILY PRN LAST DOSE GIVEN: DATE: TIME: NEXT DOSE DUE: DATE: WHEN NEEDED TIME: Myrbetriq (Mirabegron) 50 Mg Tab.er.24h 50 Mg PO HS LAST DOSE GIVEN: DATE: YESTERDAY TIME: PM NEXT DOSE DUE: DATE: TODAY TIME: PM Levothyroxine Sodium 100 Mcg Tablet 100 Mcg PO DAILYAC LAST DOSE GIVEN: DATE: TODAY TIME: BEFORE BREAKFAST NEXT DOSE DUE: DATE: TOMORROW TIME: AM Cymbalta (Duloxetine Hcl) 60 Mg Capsule.dr 60 Mg PO DAILY LAST DOSE GIVEN: DATE: TODAY TIME: AM NEXT DOSE DUE: DATE: TOMORROW TIME: AM Allergies: Coded Allergies: latex (Verified Allergy, Intermediate, 01/25/16) baclofen (Verified Allergy, Mild, Rash, 05/22/16) Review of System as per HPI Eyes: Yes: Decreased vision, Uses glasses HEENT: YES: Visual Changes, Tinnitus, Vertigo Cardiovascular: yes: Chest Pain Gastrointestinal: YES: Nausea Musculoskeletal: YES: Joint Pain, Joint Stiffness Neurological: YES: Numbness/Tingling, Other (falls) General: Alert, Oriented X3, Cooperative, No acute distress, Other (hard of hearing) HEENT: Atraumatic, Mucous membr. moist/pink Lungs: Other (few scattered crackles R>L, no wheezing or rhonchi) Heart: Regular rate, Normal S1, Normal S2, Other (no gallops, clicks or rubs, 2 /6 ESM) Abdomen: Normal bowel sounds, Soft, No tenderness Extremities: No cyanosis, Normal pulses, Other (trace edema) Neuro: Normal speech, Strength at 5/5 X4 ext Psych/Mental Status: Mental status NL, Mood NL VITALS Vital Signs Date Time Temp Pulse Resp B/P (MAP) Pulse Ox O2 Delivery O2 Flow Rate FiO2 03/09/19 08:43 67 127/74 03/09/19 05:10 97.5 12 95 Room Air Labs Laboratory Tests Test 03/08/19 17:07 03/08/19 21:40 03/09/19 01:15 03/09/19 05:50 White Blood Count 5.3 x10^3/uL (4.0-11.0) 4.9 x10^3/uL (4.0-11.0) Red Blood Count 4.23 x10^6/uL (3.50-5.40) 3.98 x10^6/uL (3.50-5.40) Hemoglobin 13.2 g/dL (12.0-15.5) 12.6 g/dL (12.0-15.5) Hematocrit 39.4 % (36.0-47.0) 36.9 % (36.0-47.0) Mean Corpuscular Volume 93 fL (79-100) 93 fL (79-100) Mean Corpuscular Hemoglobin 31 pg (25-35) 32 pg (25-35) Mean Corpuscular Hemoglobin Concent 34 g/dL (31-37) 34 g/dL (31-37) Red Cell Distribution Width 13.6 % (11.5-14.5) 13.5 % (11.5-14.5) Platelet Count 208 x10^3/uL (140-400) 182 x10^3/uL (140-400) Neutrophils (%) (Auto) 49 % (31-73) Lymphocytes (%) (Auto) 36 % (24-48) Monocytes (%) (Auto) 11 % (0-9) Eosinophils (%) (Auto) 3 % (0-3) Basophils (%) (Auto) 1 % (0-3) Neutrophils # (Auto) 2.6 x10^3uL (1.8-7.7) Lymphocytes # (Auto) 1.9 x10^3/uL (1.0-4.8) Monocytes # (Auto) 0.6 x10^3/uL (0.0-1.1) Eosinophils # (Auto) 0.1 x10^3/uL (0.0-0.7) Basophils # (Auto) 0.1 x10^3/uL (0.0-0.2) Prothrombin Time 10.5 SEC (9.4-11.4) Prothromb Time International Ratio 1.1 (0.9-1.1) Sodium Level 141 mmol/L (136-145) 140 mmol/L (136-145) Potassium Level 4.1 mmol/L (3.5-5.1) 3.8 mmol/L (3.5-5.1) Chloride Level 106 mmol/L (98-107) 107 mmol/L (98-107) Carbon Dioxide Level 24 mmol/L (21-32) 24 mmol/L (21-32) Anion Gap 11 (6-14) 9 (6-14) Blood Urea Nitrogen 13 mg/dL (7-20) 13 mg/dL (7-20) Creatinine 0.5 mg/dL (0.6-1.0) 0.6 mg/dL (0.6-1.0) Estimated GFR (Cockcroft-Gault) 120.6 97.7 BUN/Creatinine Ratio 26 (6-20) Glucose Level 80 mg/dL (70-99) 86 mg/dL (70-99) Calcium Level 9.0 mg/dL (8.5-10.1) 8.9 mg/dL (8.5-10.1) Magnesium Level 1.8 mg/dL (1.8-2.4) Total Bilirubin 0.3 mg/dL (0.2-1.0) Aspartate Amino Transf (AST/SGOT) 19 U/L (15-37) Alanine Aminotransferase (ALT/SGPT) 15 U/L (14-59) Alkaline Phosphatase 108 U/L (46-116) Troponin I Quantitative < 0.017 ng/mL (0-0.055) < 0.017 ng/mL (0-0.055) < 0.017 ng/mL (0-0.055) VM-Kfl-D-Type Natriuretic Peptide 106 pg/mL (0-124) Total Protein 7.0 g/dL (6.4-8.2) Albumin 3.7 g/dL (3.4-5.0) Albumin/Globulin Ratio 1.1 (1.0-1.7) Lipase 101 U/L (73-393) Images EKG - sinus rhythm, no acute abn CXR - Impression: Mildly increased interstitial markings in the right lung field compared. Previous exam which may reflect some mild asymmetric interstitial edema or fibrosis. Recommend clinical correlation and follow-up. Assessment/Plan 1. Chest pain, exertional - mi ruled out. check echo, lipids, continue aspirin , add BB. ambulate and if no reoccurrence of CP, plan for OP MPI 2. hypertension - resume home meds 3. - not significant by echo 4. poss PFO - bubble study LIZZETH GAITAN MD 03/09/19 1841: CONSULT Assessment/Plan Patient seen and examined Chest pain. Largely resolved. No acute elevation in troponin. With complete rule out for the call. Check echocardiogram. If echocardiogram shows no significant abnormalities and pain continues to improve we'll consider outpatient stress testing. Hypertension. Improving on home medications. Reported aortic stenosis. Not significant by echo. Possible PFO by report. We'll check bubble study. Thank you for allowing us to participate in the care of your patient. DYLAN BENEDICT APRN Mar 09, 2019 09:22 LIZZETH GAITAN MD Mar 09, 2019 18:41
[2019-03-09 09:56] VITALS: BP 91/59
[2019-03-09] MEDS ORDERED: ASPIRIN ENTERIC COATED 81 MG TABLET.DR. PO SCH (10:00)
[2019-03-09] MEDS ORDERED: METOPROLOL TART IMMED RELEASE 25 MG TABLET PO SCH (10:00)
[2019-03-09 14:33] VITALS: BP 116/74
--- NOTE | 2019-03-09 15:19 | HP ---
ADMIT DATE: 03/08/2019 HISTORY OF PRESENT ILLNESS: The patient is a 73-year-old female patient who presented to the Emergency Room by EMS with complaint of chest pain associated with diaphoresis, lightheadedness, visual disturbances and nausea. She reports episode started while out smoking a roast and she apparently was found by her neighbor in the yard and was brought to the Emergency Room. By the time she arrived, her pain has already resolved. Her episode lasted between 15-20 minutes, according to her. She reported about 4 or similar episodes for the last few months, all are very similar in nature during light activity. At the time, she has never sought any help. Apparently, she broke her right femur and was seen and evaluated at [facility]. At that time, the cardiology team advised against any operation given that she has aortic stenosis and she spent 4 months in the [facility]. The patient denied any nausea and vomiting, denied any shortness of breath. She has never had any cardiac workup, according to her, although she follows with Dr. aCno at [facility]. PAST MEDICAL HISTORY: Her past medical history is significant for hypertension, bilateral rotator cuff tear, aortic stenosis. She has generalized osteoarthritis, depression, anxiety, peptic ulcer disease, hearing loss bilaterally, hypothyroidism, migraine headache, restless leg syndrome, right side, sciatica, seasonal allergies, tinnitus bilaterally, urinary urgency and insomnia. PAST SURGICAL HISTORY: Past surgical history is significant for lower back surgery, cholecystectomy, femur fracture on the left side treated with open reduction and internal fixation, right femur fracture treated with closed reduction, bilateral total knee arthroplasty. FAMILY HISTORY: Family history is unremarkable. SOCIAL HISTORY: She is , has 2 daughters. She quit smoking a year ago with drinking alcohol years ago. 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 ALLERGIES: She is ALLERGIC TO BACLOFEN and LATEX. MEDICATIONS: She is currently on following medications: She is on cetirizine 10 mg once a day, tizanidine 4 mg twice a day, losartan potassium 50 mg daily, hydrocodone/APAP 5/325 one tablet every 6 hours. She is on gabapentin 300 mg 3 times a day, duloxetine 60 mg daily. She is on sumatriptan for Imitrex 100 mg daily, Requip 1 mg at bedtime, levothyroxine sodium 100 mcg once a day, Myrbetriq 50 mg at bedtime and cholecalciferol for vitamin D3 5000 units once a day. REVIEW OF SYSTEMS: The patient denied any blurring of vision, cataract, glaucoma or macular degeneration. Denied any earache. She did have bilateral tinnitus and she has sensorineural deafness. Denied any nosebleeds, stuffy nose or postnasal drip. Denied any sore throat, sore tongue, toothache, hoarseness of voice or difficulty swallowing. Denied any nausea, vomiting, diarrhea or constipation. Denied any hematemesis, melena or hematochezia. The patient did have intentional weight loss of about 115 pounds. Denied any dysuria, frequency or hematuria. She did complain of chest pain, but denied any orthopnea or paroxysmal nocturnal dyspnea. Denied any cough, phlegm or hemoptysis. PHYSICAL EXAMINATION: GENERAL: On arrival to the Emergency Room, she looked well and was clearly in no apparent respiratory distress, pale, but no jaundice, cyanosis, or thyromegaly. No jugular venous distension. No lower limb edema. VITAL SIGNS: Her heart rate was 99, her blood pressure was 146/70, temperature was 98.1, respiratory rate 16 and oxygen saturation was 96%. HEENT: Examination of the head, eyes, ears, nose and throat showed normocephalic, atraumatic. NECK: Supple. HEART: Showed normal first and second heart sounds. No gallop, rub or murmur. CHEST: Clear to auscultation. No crepitation or rhonchi. ABDOMEN: Distended, soft, nontender. NEUROLOGIC: She is awake, alert, responding appropriately. All her cranial nerves are intact. EXTREMITIES: She ambulates without assistance or assistive devices, although she said sometimes she has to use a walker. LABORATORY DATA: Her lab work on admission showed white cell count 5300, hemoglobin 13, hematocrit 39, MCV 93, and platelet count of 208,000. Her chemistry showed a serum sodium 141, potassium 4.1, chloride 106, bicarbonate 24, anion gap of 11, BUN 13, creatinine 0.5, estimated GFR was 120 mL per minute. Her glucose was 80, calcium was 9, magnesium was 1.8. Total bilirubin, AST, ALT, alkaline phosphatase were normal. Total protein was 7, albumin was 3.7. Her lipase was 101. Her prothrombin time was 10.5, INR 1.1. Her first set of cardiac enzymes showed troponin to be less than 0.017. PLAN: The patient, therefore, was admitted to do 2 more sets of cardiac enzymes, check his fasting lipid profile and consult the cardiology team. LESLEY ERWIN MD DR: LAN/rashard JOB#: [id number] / [id number]
--- NOTE | 2019-03-09 16:20 | DS ---
DATE OF DISCHARGE: 03/09/2019 HISTORY OF PRESENT ILLNESS: The patient is a 73-year-old female patient who came to the Emergency Room complaining of chest pain that lasted about 15-20 minutes. She also complained of drenching sweats, lightheadedness, visual disturbances and nausea. Her pain has resolved completely by the time she arrived to the Emergency Room. The patient is known to have mild aortic stenosis, has had an echocardiogram done in 2018. She has had 3 sets of cardiac enzymes, all of them showed that her troponin was less than 0.017. Her fasting lipid profile showed her serum triglycerides were 26, total cholesterol 161, LDL was 94, VLDL was 5, HDL was 62 and the ratio was 2. Her TSH was slightly elevated ____. The patient's myocardial infarction was ruled out. A decision was made to discharge her back to home and to arrange for her echocardiogram and a nuclear stress test as an outpatient. PHYSICAL EXAMINATION: GENERAL: When I examined her this afternoon, she looked well and was clearly in no apparent respiratory distress. She was pale, no jaundice, cyanosis, or thyromegaly. No jugular venous distension. No limb edema. VITAL SIGNS: Her heart rate was 67, blood pressure was 127/74, temperature was 97.5, respiratory rate was 18 and oxygen saturation was 96%. HEAD, EYES, EARS, NOSE AND THROAT: Showed normocephalic, atraumatic. NECK: Supple. HEART: Showed normal first and second heart sounds with no gallop, rub or murmur. CHEST: Clear to auscultation. No crepitation or rhonchi. ABDOMEN: Distended, soft, nontender. No guarding or rigidity. No organomegaly. All hernial orifices are intact. Bowel sounds normal. NEUROLOGIC: She was awake, alert, responding appropriately. All cranial nerves are intact. She ambulates mostly without assistance or assistive devices. Sometimes she has to use a walker because of pain in her knee joint. Her lab work this morning showed a white cell count of 4900, hemoglobin 12.6, hematocrit 36, MCV 93, and platelet count of 182,000. Her chemistry this morning showed a serum sodium 140, potassium 3.8, chloride 107, bicarbonate 24, anion gap of 9, BUN 13, creatinine 0.6, estimated GFR was 97 mL per minute. Her glucose was 86, calcium was 8.9. DISCHARGE MEDICATIONS: She was discharged home to continue on following medications, cetirizine 10 mg once a day, cholecalciferol for vitamin D3 5000 international once a day, duloxetine 60 mg daily, gabapentin 300 mg 3 times a day, hydrocodone/APAP 5/325 one tablet every 6 hours, levothyroxine sodium 100 mcg once a day, losartan potassium 50 mg daily, Myrbetriq 50 mg once a day, Requip 1 mg at bedtime, sumatriptan succinate for Imitrex 100 mg daily p.r.n. for migraine headaches and tizanidine 4 mg twice a day. ASSESSMENT: Chest pain, myocardial infarction ruled out. PLAN: Continue with aspirin and beta blockers and arrangement has been made for her to have an echocardiogram and stress test as an outpatient. Hypertension, seems well controlled. Aortic stenosis, apparently not significant by echocardiogram. Other medical problems include hypothyroidism. This is suboptimally controlled. Her TSH slightly is elevated. LESLEY ERWIN MD DR: LAN/rashard JOB#: [id number] / [id number]
== END 2019-03-09 18:05 | disposition home or self-care (01) ==
LOC: ER 16:56 → INTOOBSV 19:00 → 1 SOUTH 19:00
PROVIDERS: ADMIT Internal Medicine; ATTEND Internal Medicine
DX: R07.9 Chest pain, unspecified (principal); I10 Essential (primary) hypertension; E03.9 Hypothyroidism, unspecified; J45.909 Unspecified asthma, uncomplicated; M19.90 Unspecified osteoarthritis, unspecified site; G43.909 Migraine, unspecified, not intractable, without status migrainosus; G25.81 Restless legs syndrome; F98.8 Other specified behavioral and emotional disorders with onset usually occurring in childhood and adolescence; I35.0 Nonrheumatic aortic (valve) stenosis; F32.9 Major depressive disorder, single episode, unspecified; F41.9 Anxiety disorder, unspecified; M54.31 Sciatica, right side; Z87.11 Personal history of peptic ulcer disease; Z91.040 Latex allergy status; Z88.8 Allergy status to other drugs, medicaments and biological substances; Z96.653 Presence of artificial knee joint, bilateral; Z87.891 Personal history of nicotine dependence
CPT/HCPCS: 36415; 71045; 80048; 80053; 80061; 83690; 83735; 83880; 84443; 84484; 85025; 85027; 85610; 93005; 97162; 97166; 99284; G0378; G0379